=== PATIENT | female | born 1955 | race Caucasian/White ===

== ENCOUNTER 2016-04-08 17:50 | Inpatient (IN) | payer BC, MEDICAID, MEDICARE ==
[~2016-04-08] VITALS: Ht 170.2 cm; Wt 58.2 kg
[2016-04-08] MEDS ORDERED: MORPHINE SULFATE INJ 4 MG/ML DISP.SYRIN ONE (18:13)
[2016-04-08] MEDS ORDERED: MORPHINE SULFATE INJ 4 MG/ML DISP.SYRIN IM ONE (18:30)
[2016-04-08] MEDS ORDERED: MORPHINE SULFATE INJ 2 MG/ML DISP.SYRIN IV ONE (19:30)
[2016-04-08 19:32] LABS: BASOPHILS % (AUTO) 0.5 % (0.0-2.0); EOSINOPHILS % (AUTO) 0.1 % (0.0-6.0); HEMATOCRIT 35 % (33-45); LYMPHOCYTES % (AUTO) 18.2 % (20.0-44.0); MEAN CORPUSCULAR HEMOGLOBIN 30 PG (26.0-33.0); MEAN CORPUSCULAR HGB CONC 34 g/dl (31.0-36.0); MEAN CORPUSCULAR VOLUME 87 fL (82-100); MONOCYTES % (AUTO) 5.7 % (2.0-12.0); NEUTROPHILS % (AUTO) 75.5 % (43.0-81.0); PLATELET COUNT (AUTO) 162 /CMM (150-450); WHITE BLOOD COUNT (AUTO) 9.1 K/uL (4.3-11.0)
[2016-04-08 19:33] LABS: DIFF TOTAL % 100 %; LYMPHOCYTES # (AUTO) 1.6 /CMM (0.8-4.8); MONOCYTES # (AUTO) 0.5 /CMM (0.1-1.30)
[2016-04-08 19:45] LABS: INR 1.1 (0.87-1.13); PROTHROMBIN TIME 11.6 SECS (9.5-12.7)
[2016-04-08] MEDS ORDERED: IV NS 0.9% 1,000 ML IV PRN (19:48)
[2016-04-08] MEDS ORDERED: MAG HYDROX/AL HYDROX/SIMETH 30 ML UDC PO PRN (20:00)
[2016-04-08] MEDS ORDERED: ONDANSETRON HCL/PF 4 MG/2 ML VIAL IVP PRN (20:00)
[2016-04-08 20:01] LABS: CALCIUM, SERUM 9.3 mg/dL (8.5-10.1); CREATININE 0.7 mg/dL (0.6-1.3); POTASSIUM 3.7 mmol/L (3.5-5.1)
[2016-04-08] MEDS ORDERED: FLUV100T3 PO (20:15)
[2016-04-08] MEDS ORDERED: PREG75CA PO (20:15)
[2016-04-08] MEDS ORDERED: CLOZ100T32 PO (20:15)
[2016-04-08] MEDS ORDERED: PROP20TA7 PO (20:15)
[2016-04-08] MEDS ORDERED: SIMV40TA5 PO (20:15)
[2016-04-08] MEDS ORDERED: CLON1TAB4 PO (20:15)
[2016-04-08] MEDS ORDERED: SERT100T PO (20:15)
[2016-04-08 20:45] VITALS: BP 118/66
[2016-04-08] MEDS ORDERED: IV SET PRIMARY PUMP SET 1 EA INFUS.SET MC ONE (21:30)
[2016-04-08] MEDS ORDERED: IV D5/ 0.9% NACL 1,000 ML IV ONE (21:30)
[2016-04-08] MEDS: IV D5/ 0.9% NACL 1,000 ML IV SCH (21:38)
[2016-04-09] MEDS ORDERED: CLOZ100T32 PO (07:20)
[2016-04-09] MEDS ORDERED: SERT50TA12 PO (07:20)
[2016-04-09] MEDS ORDERED: CLOZ200T PO (07:20)
[2016-04-09 08:00] VITALS: BP 97/50
[2016-04-09] MEDS: PANTOPRAZOLE 40 MG VIAL IV SCH (08:14)
[2016-04-09] MEDS: HYDROCODONE/APAP 5/325MG 1 EACH TABLET PO PRN (08:19)
[2016-04-09 08:23] LABS: BASOPHILS % (AUTO) 0.3 % (0.0-2.0); DIFF TOTAL % 100 %; EOSINOPHILS % (AUTO) 0.1 % (0.0-6.0); HEMATOCRIT 35 % (33-45); HEMOGLOBIN 11.8 g/dL (11.5-14.8); LYMPHOCYTES # (AUTO) 1.2 /CMM (0.8-4.8); LYMPHOCYTES % (AUTO) 17.2 % (20.0-44.0); MEAN CORPUSCULAR HEMOGLOBIN 29 PG (26.0-33.0); MEAN CORPUSCULAR HGB CONC 34 g/dl (31.0-36.0); MEAN CORPUSCULAR VOLUME 87 fL (82-100); MONOCYTES # (AUTO) 0.5 /CMM (0.1-1.30); MONOCYTES % (AUTO) 6.5 % (2.0-12.0); NEUTROPHILS # (AUTO) 5.3 /CMM (1.8-8.9); NEUTROPHILS % (AUTO) 75.9 % (43.0-81.0); PLATELET COUNT (AUTO) 153 /CMM (150-450); RED BLOOD CELL COUNT(AUTO) 4.02 MIL/uL (4.0-5.2)
[2016-04-09 08:29] LABS: CALCIUM, SERUM 8.6 mg/dL (8.5-10.1); CREATININE 0.8 mg/dL (0.6-1.3); PHOSPHORUS 2.8 mg/dL (2.5-4.9); POTASSIUM 3.5 mmol/L (3.5-5.1)
[2016-04-09] MEDS ORDERED: ENOXAPARIN SODIUM 30 MG/0.3 ML DISP.SYRIN SQ SCH (09:00)
[2016-04-09] MEDS ORDERED: ENOXAPARIN SODIUM 40 MG/0.4 ML DISP.SYRIN SQ SCH (09:00)
[2016-04-09] MEDS ORDERED: SECONDARY IV SET 1 EA INFUS.SET MC ONE (10:42)
[2016-04-09] MEDS: IV D5/ 0.9% NACL 1,000 ML IV SCH (10:49)
[2016-04-09] MEDS ORDERED: CEFTRIAXONE 1 G in IV D5W 50 ML IV SCH (11:00)
[2016-04-09 16:00] VITALS: BP 117/71
[2016-04-09] MEDS ORDERED: SERTRALINE HCL 50 MG TABLET PO SCH ×2 (17:00)
[2016-04-09] MEDS: PREGABALIN 25 MG CAPSULE PO SCH (17:11)
[2016-04-09] MEDS: FLUVOXAMINE MALEATE 50 MG TABLET PO SCH (17:12)
[2016-04-09] MEDS: clonazePAM 1 MG TABLET PO SCH (17:12)
[2016-04-09] MEDS: SIMVASTATIN 40 MG TABLET PO SCH (17:12)
[2016-04-09] MEDS: SERTRALINE HCL 50 MG TABLET PO SCH (17:12)
[2016-04-09 20:00] VITALS: BP 100/44
[2016-04-09] MEDS: CLOZAPINE 100 MG TABLET PO SCH (23:25)
[2016-04-10] VITALS (13 sets, daily range): BP systolic 81–120; BP diastolic 43–81
[2016-04-10] MEDS ORDERED: IV D5/ 0.9% NACL 1,000 ML IV ONE (05:29)
[2016-04-10] MEDS: IV D5/ 0.9% NACL 1,000 ML IV PRN ×2 (05:33→17:33)
[2016-04-10] MEDS ORDERED: BACITRACIN 50000 UNITS/VIAL ONE (07:17)
[2016-04-10] MEDS ORDERED: MIDAZOLAM HCL 2 MG/2ML VIAL ONE (08:34)
[2016-04-10] MEDS ORDERED: ROCURONIUM BROMIDE 50 MG/5 ML ONE (08:34)
[2016-04-10] MEDS ORDERED: FENTANYL PF 100MCG/2ML AMPUL ONE (08:34)
[2016-04-10] MEDS: PROPRANOLOL HCL 10 MG TABLET PO SCH (09:00)
[2016-04-10] MEDS ORDERED: TRANEXAMIC ACID 3,000 MG in SODIUM CHLORIDE IRRIG SOLUTION 70 ML IR ONE (09:30)
[2016-04-10] MEDS ORDERED: BUPIVACAINE 0.5 % PF 150 MG/30 ML VIAL ONE (10:52)
[2016-04-10] MEDS: clonazePAM 1 MG TABLET PO SCH ×3 (13:00→17:34)
[2016-04-10] MEDS: FLUVOXAMINE MALEATE 50 MG TABLET PO SCH ×2 (17:00→17:34)
[2016-04-10] MEDS: SERTRALINE HCL 50 MG TABLET PO SCH ×2 (17:00→17:34)
[2016-04-10] MEDS: PREGABALIN 25 MG CAPSULE PO SCH ×2 (17:00→17:34)
[2016-04-10] MEDS: PANTOPRAZOLE 40 MG VIAL IV SCH (17:33)
[2016-04-10] MEDS: SIMVASTATIN 40 MG TABLET PO SCH (17:34)
[2016-04-10] MEDS: CLOZAPINE 100 MG TABLET PO SCH ×2 (17:34→21:10)
[2016-04-10] MEDS: ANCEF 1 GM/50 ML D5W IV SCH ×2 (19:23)
[2016-04-10] MEDS: TEMAZEPAM 15 MG CAPSULE PO PRN (21:50)
[2016-04-11] MEDS: ACETAMINOPHEN 325 MG TABLET PO PRN ×2 (00:02→21:28)
[2016-04-11] MEDS: ANCEF 1 GM/50 ML D5W IV SCH ×4 (00:02→10:34)
[2016-04-11 01:45] VITALS: BP 107/54
[2016-04-11 06:50] LABS: BASOPHILS % (AUTO) 0.4 % (0.0-2.0); DIFF TOTAL % 100 %; HEMATOCRIT 29 % (33-45); HEMOGLOBIN 9.5 g/dL (11.5-14.8); LYMPHOCYTES # (AUTO) 1.1 /CMM (0.8-4.8); LYMPHOCYTES % (AUTO) 14.5 % (20.0-44.0); MEAN CORPUSCULAR HEMOGLOBIN 29 PG (26.0-33.0); MEAN CORPUSCULAR HGB CONC 33 g/dl (31.0-36.0); MEAN CORPUSCULAR VOLUME 88 fL (82-100); MONOCYTES # (AUTO) 0.4 /CMM (0.1-1.30); MONOCYTES % (AUTO) 5.5 % (2.0-12.0); NEUTROPHILS # (AUTO) 6.2 /CMM (1.8-8.9); NEUTROPHILS % (AUTO) 79.6 % (43.0-81.0); PLATELET COUNT (AUTO) 128 /CMM (150-450); RED BLOOD CELL COUNT(AUTO) 3.26 MIL/uL (4.0-5.2); WHITE BLOOD COUNT (AUTO) 7.8 K/uL (4.3-11.0)
[2016-04-11 07:09] LABS: CALCIUM, SERUM 8.3 mg/dL (8.5-10.1); CREATININE 0.6 mg/dL (0.6-1.3); POTASSIUM 3.4 mmol/L (3.5-5.1)
[2016-04-11 08:00] VITALS: BP 107/58
[2016-04-11] MEDS: PANTOPRAZOLE 40 MG VIAL IV SCH (09:09)
[2016-04-11] MEDS: PREGABALIN 25 MG CAPSULE PO SCH ×2 (09:09→16:53)
[2016-04-11] MEDS: CLOZAPINE 100 MG TABLET PO SCH ×2 (09:10→22:14)
[2016-04-11] MEDS: SERTRALINE HCL 50 MG TABLET PO SCH ×2 (09:10→16:53)
[2016-04-11] MEDS: clonazePAM 1 MG TABLET PO SCH ×3 (09:10→16:53)
[2016-04-11] MEDS: FLUVOXAMINE MALEATE 50 MG TABLET PO SCH ×2 (09:10→16:53)
[2016-04-11] MEDS: SIMVASTATIN 40 MG TABLET PO SCH (09:10)
[2016-04-11] MEDS: ENOXAPARIN SODIUM 40 MG/0.4 ML DISP.SYRIN SQ SCH (09:24)
[2016-04-11] MEDS: ACETYLCYSTEINE 20% SOLN 800 MG/4 ML VIAL NEB SCH ×2 (10:30→15:17)
[2016-04-11] MEDS ORDERED: POTASSIUM CHLORIDE 20 MEQ TAB.PRT.SR PO ONE (10:30)
[2016-04-11] MEDS: PROPRANOLOL HCL 10 MG TABLET PO SCH (10:51)
[2016-04-11] MEDS: AZITHROMYCIN 250 MG TABLET PO SCH (11:06)
[2016-04-11] MEDS: IV D5/ 0.9% NACL 1,000 ML IV PRN (12:24)
[2016-04-11] MEDS: IPRATROPIUM NEB FS 0.5 MG/2.5 ML AMPUL.NEB NEB PRN ×2 (15:17→21:10)
[2016-04-11 16:00] VITALS: BP 82/54
[2016-04-11 20:00] VITALS: BP 107/57
[2016-04-11 22:00] VITALS: BP 107/57
[2016-04-11 23:54] LABS: KETONES,URINE 2+ (NEGATIVE); LEUKOCYTE ESTERASE ,URINE NEGATIVE (NEGATIVE)
[2016-04-11 23:58] LABS: ADD UA MICROSCOPIC YES
[2016-04-12] VITALS (22 sets, daily range): BP systolic 87–116; BP diastolic 47–66
[2016-04-12] MEDS: ACETYLCYSTEINE 20% SOLN 800 MG/4 ML VIAL NEB SCH ×2 (00:06→07:53)
[2016-04-12 00:30] LABS: ADD URINE CULTURE NO; RBC,URINE 21-50 /HPF (0-2); WBC,URINE 0-2 /HPF (0-3)
[2016-04-12] MEDS: TEMAZEPAM 15 MG CAPSULE PO PRN (00:46)
[2016-04-12] MEDS ORDERED: LORAZEPAM INJ 2 MG/ML VIAL ONE (01:11)
[2016-04-12] MEDS ORDERED: IV NS 0.9% 500 ML IV ONE ×2 (01:20→01:30)
[2016-04-12] MEDS ORDERED: IV NS 0.9% 1,000 ML ONE ×2 (01:22→16:23)
[2016-04-12] MEDS ORDERED: IV SET PRIMARY PUMP SET 1 EA INFUS.SET MC ONE ×5 (01:22→20:04)
[2016-04-12] MEDS ORDERED: LORAZEPAM INJ 2 MG/ML VIAL IV ONE (01:30)
[2016-04-12] MEDS: IPRATROPIUM NEB FS 0.5 MG/2.5 ML AMPUL.NEB NEB PRN (03:13)
[2016-04-12] MEDS: IV NS 0.9% 1,000 ML IV PRN ×2 (03:59→13:56)
[2016-04-12 04:45] LABS: ABG BASE EXCESS -1.4 mmol/L; ABG HCO3 23.7 mmol/L; ABG PCO2 41.4 mmHg (35.0-45.0); ABG PH 7.375 (7.350-7.450); ABG PO2 52.3 mmHg (75.0-100.0); ABG TOTAL HEMOGLOBIN 9.7 G/dL (12.0-16.0); ALLEN TEST Pass; O2Hb 85.3 % (94.0-97.0)
[2016-04-12] MEDS ORDERED: LORAZEPAM INJ 2 MG/ML VIAL IV PRN (05:30)
[2016-04-12] MEDS: PREGABALIN 25 MG CAPSULE PO SCH ×2 (09:15→21:30)
[2016-04-12] MEDS: PANTOPRAZOLE 40 MG VIAL IV SCH (09:15)
[2016-04-12] MEDS: SERTRALINE HCL 50 MG TABLET PO SCH ×2 (09:16→21:37)
[2016-04-12] MEDS: AZITHROMYCIN 250 MG TABLET PO SCH (09:16)
[2016-04-12] MEDS: clonazePAM 1 MG TABLET PO SCH ×2 (09:16→13:00)
[2016-04-12] MEDS: SIMVASTATIN 40 MG TABLET PO SCH (09:16)
[2016-04-12] MEDS: CLOZAPINE 100 MG TABLET PO SCH ×2 (09:17→23:02)
[2016-04-12] MEDS: FLUVOXAMINE MALEATE 50 MG TABLET PO SCH ×2 (09:17→23:29)
[2016-04-12] MEDS: PROPRANOLOL HCL 10 MG TABLET PO SCH (09:17)
[2016-04-12] MEDS: ENOXAPARIN SODIUM 40 MG/0.4 ML DISP.SYRIN SQ SCH (09:23)
[2016-04-12 15:11] LABS: ABG BASE EXCESS -2.3 mmol/L; ABG HCO3 23.8 mmol/L; ABG NOTIFIED WHOM RN; ABG PCO2 46.7 mmHg (35.0-45.0); ABG PH 7.325 (7.350-7.450); ABG PO2 64.4 mmHg (75.0-100.0); ABG TOTAL HEMOGLOBIN 9.4 G/dL (12.0-16.0); ALLEN TEST Pass; AaDO2 601.9 mmHg; O2Hb 89.1 % (94.0-97.0)
[2016-04-12] MEDS ORDERED: PIPERACILLIN /TAZOBACTAM 3.375 G in IV D5W 50 ML IV SCH (16:00)
[2016-04-12] MEDS ORDERED: FEE PK DOSING 1 MIN EA MC ONE (16:17)
[2016-04-12] MEDS ORDERED: NOREPINEPHRINE 8 MG in IV D5W 500 ML IV PRN (16:30)
[2016-04-12] MEDS ORDERED: VANCOMYCIN 1 GM in IV D5W 250 ML IV ONE (17:00)
[2016-04-12] MEDS ORDERED: PROPOFOL 100 ML IV PRN (17:00)
[2016-04-12] MEDS: IPRATROPIUM NEB FS 0.5 MG/2.5 ML AMPUL.NEB NEB SCH ×3 (17:14→23:43)
[2016-04-12] MEDS: ALBUTEROL HALF STRENGTH 1.25 MG/3 ML VIAL.NEB NEB SCH ×3 (17:15→23:43)
[2016-04-12] MEDS: ACETYLCYSTEINE 10% SOLN 400 MG/4 ML VIAL NEB SCH ×2 (17:15→23:43)
[2016-04-12] MEDS: PROPOFOL 100 ML IV PRN (17:18)
[2016-04-12 17:30] LABS: ABG BASE EXCESS -6.5 mmol/L; ABG HCO3 21.5 mmol/L; ABG PCO2 54.7 mmHg (35.0-45.0); ABG PH 7.212 (7.350-7.450); ABG PO2 239.8 mmHg (75.0-100.0); ABG TOTAL HEMOGLOBIN 10.8 G/dL (12.0-16.0); AaDO2 418.5 mmHg; O2Hb 97.3 % (94.0-97.0)
[2016-04-12] MEDS ORDERED: IV D5/ 0.9% NACL 1,000 ML IV ONE (17:44)
[2016-04-12] MEDS ORDERED: SECONDARY IV SET 1 EA INFUS.SET MC ONE (17:58)
[2016-04-12] MEDS: PIPERACILLIN /TAZOBACTAM 3.375 G in IV D5W 50 ML IV SCH (18:14)
[2016-04-12] MEDS: IV D5/ 0.9% NACL 1,000 ML IV PRN (18:15)
[2016-04-12] MEDS ORDERED: IV D5W 250 ML IV ONE (20:04)
[2016-04-12] MEDS: NOREPINEPHRINE 16 MG in IV D5W 500 ML IV PRN (20:13)
[2016-04-12] MEDS ORDERED: IOHEXOL-350 100 ML VIAL IV ONE (21:40)
[2016-04-12] MEDS ORDERED: IV NS 0.9% 250 ML IV ONE (21:40)
[2016-04-12] MEDS ORDERED: FLUVOXAMINE MALEATE 50 MG TABLET ONE (23:16)
[2016-04-13] VITALS (63 sets, daily range): BP systolic 78–133; BP diastolic 42–85
[2016-04-13] MEDS: PIPERACILLIN /TAZOBACTAM 3.375 G in IV D5W 50 ML IV SCH ×5 (00:30→23:28)
[2016-04-13] MEDS: PROPOFOL 100 ML IV PRN ×5 (02:04→22:53)
[2016-04-13] MEDS: IV D5/ 0.9% NACL 1,000 ML IV PRN ×4 (03:27→21:45)
[2016-04-13] MEDS ORDERED: IV SET PRIMARY PUMP SET 1 EA INFUS.SET MC ONE ×5 (03:27→22:06)
[2016-04-13] MEDS ORDERED: IV D5W 250 ML IV ONE ×2 (03:27→21:16)
[2016-04-13] MEDS: ALBUTEROL HALF STRENGTH 1.25 MG/3 ML VIAL.NEB NEB SCH ×6 (03:53→23:21)
[2016-04-13] MEDS: IPRATROPIUM NEB FS 0.5 MG/2.5 ML AMPUL.NEB NEB SCH ×6 (03:53→23:20)
[2016-04-13] MEDS: VANCOMYCIN 1 GM in IV D5W 250 ML IV SCH ×2 (04:57→18:38)
[2016-04-13 05:26] LABS: CALCIUM, SERUM 8.1 mg/dL (8.5-10.1); CREATININE 0.6 mg/dL (0.6-1.3)
[2016-04-13 05:33] LABS: POTASSIUM 2.8 mmol/L (3.5-5.1)
[2016-04-13] MEDS ORDERED: POTASSIUM CL. PREMIX PERIPHER. 50 ML ONE (06:15)
[2016-04-13] MEDS ORDERED: Magnesium 1GM/D5W 100ML PREMIX 100 ML IV ONE (06:15)
[2016-04-13] MEDS ORDERED: Magnesium 1GM/D5W 100ML PREMIX PIGGYBACK IV ONE (06:30)
[2016-04-13] MEDS ORDERED: Magnesium 1GM/D5W 100ML PREMIX 100 ML IV SCH (06:30)
[2016-04-13] MEDS: ACETYLCYSTEINE 10% SOLN 400 MG/4 ML VIAL NEB SCH ×3 (07:40→23:20)
[2016-04-13 08:25] LABS: ABG PCO2 43.9 mmHg (35.0-45.0); ABG PH 7.406 (7.350-7.450); ABG TOTAL HEMOGLOBIN 7.8 G/dL (12.0-16.0); ALLEN TEST Pass; AaDO2 309.9 mmHg
[2016-04-13] MEDS: POTASSIUM CL. PREMIX PERIPHER. 50 ML IV SCH ×6 (08:30→13:30)
[2016-04-13] MEDS: ACETAMINOPHEN 325 MG TABLET PO PRN (08:45)
[2016-04-13 09:59] LABS: PHOSPHORUS 1.3 mg/dL (2.5-4.9)
[2016-04-13] MEDS: PANTOPRAZOLE 40 MG VIAL IV SCH (10:05)
[2016-04-13] MEDS ORDERED: FEE EMEERGENCY 1 MIN EA MC ONE (10:31)
[2016-04-13] MEDS ORDERED: ETOMIDATE 2 MG/ML VIAL IV ONE (10:31)
[2016-04-13] MEDS ORDERED: SUCCINYLCHOLINE CHLORIDE 20 MG/ML VIAL IV ONE (10:31)
[2016-04-13] MEDS: FLUVOXAMINE MALEATE 50 MG TABLET PO SCH ×2 (11:40→18:49)
[2016-04-13] MEDS: SIMVASTATIN 40 MG TABLET PO SCH (11:40)
[2016-04-13] MEDS: AZITHROMYCIN 250 MG TABLET PO SCH (11:40)
[2016-04-13] MEDS: CLOZAPINE 100 MG TABLET PO SCH ×2 (11:41→21:50)
[2016-04-13] MEDS: SERTRALINE HCL 50 MG TABLET PO SCH ×2 (11:41→18:49)
[2016-04-13] MEDS: ENOXAPARIN SODIUM 40 MG/0.4 ML DISP.SYRIN SQ SCH (11:42)
[2016-04-13] MEDS: PREGABALIN 25 MG CAPSULE PO SCH ×2 (11:45→18:49)
[2016-04-13] MEDS: PROPRANOLOL HCL 10 MG TABLET PO SCH (11:45)
[2016-04-13] MEDS ORDERED: SECONDARY IV SET 1 EA INFUS.SET MC ONE (14:34)
[2016-04-13] MEDS: Potassium Phosphate meq 11 MEQ in IV D5W 100 ML IV SCH ×2 (14:38→15:59)
[2016-04-13] MEDS ORDERED: PHENYLEPHRINE 10 MG/ML VIAL ONE (21:16)
[2016-04-13] MEDS ORDERED: LORAZEPAM 0.5 MG TABLET ONE (23:23)
[2016-04-13] MEDS: LORAZEPAM 0.5 MG TABLET PO SCH (23:28)
[2016-04-14] VITALS (87 sets, daily range): BP systolic 87–127; BP diastolic 24–76
[2016-04-14] MEDS: PROPOFOL 100 ML IV PRN ×4 (03:13→22:46)
[2016-04-14] MEDS: IPRATROPIUM NEB FS 0.5 MG/2.5 ML AMPUL.NEB NEB SCH ×6 (03:23→23:40)
[2016-04-14] MEDS: ALBUTEROL HALF STRENGTH 1.25 MG/3 ML VIAL.NEB NEB SCH ×6 (03:23→23:40)
[2016-04-14] MEDS: VANCOMYCIN 1 GM in IV D5W 250 ML IV SCH ×3 (04:32→21:12)
[2016-04-14 05:23] LABS: CALCIUM, SERUM 7.8 mg/dL (8.5-10.1); CREATININE 0.4 mg/dL (0.6-1.3)
[2016-04-14 05:32] LABS: POTASSIUM 2.8 mmol/L (3.5-5.1)
[2016-04-14] MEDS ORDERED: NOREPINEPHRINE 4 MG/4 ML AMPUL IV ONE (05:34)
[2016-04-14] MEDS: NOREPINEPHRINE 16 MG in IV D5W 500 ML IV PRN ×2 (05:43→12:21)
[2016-04-14] MEDS: PIPERACILLIN /TAZOBACTAM 3.375 G in IV D5W 50 ML IV SCH ×4 (06:02→23:13)
[2016-04-14] MEDS ORDERED: LORAZEPAM 0.5 MG TABLET ONE (06:05)
[2016-04-14] MEDS ORDERED: POTASSIUM CL. PREMIX PERIPHER. 50 ML ONE (06:17)
[2016-04-14] MEDS: POTASSIUM CL. PREMIX PERIPHER. 50 ML IV SCH ×4 (06:26→10:57)
[2016-04-14] MEDS: LORAZEPAM 0.5 MG TABLET PO SCH ×4 (06:26→23:14)
[2016-04-14] MEDS: ACETYLCYSTEINE 10% SOLN 400 MG/4 ML VIAL NEB SCH ×3 (07:17→23:40)
[2016-04-14] MEDS: CLOZAPINE 100 MG TABLET PO SCH ×2 (08:10→21:57)
[2016-04-14] MEDS: SIMVASTATIN 40 MG TABLET PO SCH (08:10)
[2016-04-14] MEDS: PREGABALIN 25 MG CAPSULE PO SCH ×2 (08:10→16:17)
[2016-04-14] MEDS: PROPRANOLOL HCL 10 MG TABLET PO SCH (08:10)
[2016-04-14] MEDS: SERTRALINE HCL 50 MG TABLET PO SCH ×2 (08:10→16:17)
[2016-04-14] MEDS: PANTOPRAZOLE 40 MG VIAL IV SCH (08:10)
[2016-04-14] MEDS: FLUVOXAMINE MALEATE 50 MG TABLET PO SCH ×2 (08:10→16:17)
[2016-04-14] MEDS: ENOXAPARIN SODIUM 40 MG/0.4 ML DISP.SYRIN SQ SCH (08:12)
[2016-04-14] MEDS: ACETAMINOPHEN 325 MG TABLET PO PRN ×2 (08:18→14:56)
[2016-04-14 09:03] LABS: BASOPHILS % (AUTO) 0.3 % (0.0-2.0); DIFF TOTAL % 100 %; HEMATOCRIT 24 % (33-45); HEMOGLOBIN 7.8 g/dL (11.5-14.8); LYMPHOCYTES # (AUTO) 0.9 /CMM (0.8-4.8); LYMPHOCYTES % (AUTO) 14.4 % (20.0-44.0); MEAN CORPUSCULAR HEMOGLOBIN 29 PG (26.0-33.0); MEAN CORPUSCULAR HGB CONC 33 g/dl (31.0-36.0); MEAN CORPUSCULAR VOLUME 88 fL (82-100); MONOCYTES # (AUTO) 0.3 /CMM (0.1-1.30); MONOCYTES % (AUTO) 4.8 % (2.0-12.0); NEUTROPHILS # (AUTO) 5.1 /CMM (1.8-8.9); NEUTROPHILS % (AUTO) 80.5 % (43.0-81.0); PLATELET COUNT (AUTO) 161 /CMM (150-450); WHITE BLOOD COUNT (AUTO) 6.4 K/uL (4.3-11.0)
[2016-04-14] MEDS: AZITHROMYCIN 250 MG TABLET PO SCH (10:07)
[2016-04-14 10:21] LABS: ABG BASE EXCESS 2.4 mmol/L; ABG HCO3 26.5 mmol/L; ABG PCO2 38.4 mmHg (35.0-45.0); ABG PH 7.456 (7.350-7.450); ABG PO2 110.2 mmHg (75.0-100.0); ABG TOTAL HEMOGLOBIN 8.1 G/dL (12.0-16.0); AaDO2 203.1 mmHg; O2Hb 94.6 % (94.0-97.0)
[2016-04-14] MEDS: IV D5/ 0.9% NACL 1,000 ML IV PRN (10:21)
[2016-04-14] MEDS ORDERED: BLOOD IV SET 1 EA INFUS.SET MC ONE (12:11)
[2016-04-14] MEDS ORDERED: IV NS 0.9% 250 ML IV ONE (12:12)
[2016-04-14] MEDS ORDERED: SECONDARY IV SET 1 EA INFUS.SET MC ONE (13:01)
[2016-04-14] MEDS ORDERED: K PHOS NEUTRAL 250 MG TABLET PO ONE (14:00)
[2016-04-14] MEDS: FIBERSOURCE HN 1,000 ML BOTTLE GT PRN (18:14)
[2016-04-14] MEDS ORDERED: IV D5W 250 ML IV ONE (21:05)
[2016-04-14] MEDS ORDERED: IV SET PRIMARY PUMP SET 1 EA INFUS.SET MC ONE (21:05)
[2016-04-15] VITALS (69 sets, daily range): BP systolic 95–133; BP diastolic 50–78
[2016-04-15] MEDS: ACETAMINOPHEN 325 MG TABLET PO PRN (02:40)
[2016-04-15] MEDS: IPRATROPIUM NEB FS 0.5 MG/2.5 ML AMPUL.NEB NEB SCH ×6 (03:14→23:46)
[2016-04-15] MEDS: ALBUTEROL HALF STRENGTH 1.25 MG/3 ML VIAL.NEB NEB SCH ×6 (03:14→23:45)
[2016-04-15] MEDS: IV D5/ 0.9% NACL 1,000 ML IV PRN ×2 (03:17→16:24)
[2016-04-15] MEDS: VANCOMYCIN 1 GM in IV D5W 250 ML IV SCH ×3 (04:30→20:26)
[2016-04-15] MEDS: PROPOFOL 100 ML IV PRN (04:31)
[2016-04-15 04:54] LABS: CREATININE 0.6 mg/dL (0.6-1.3); PHOSPHORUS 2.1 mg/dL (2.5-4.9)
[2016-04-15 05:03] LABS: POTASSIUM 2.5 mmol/L (3.5-5.1)
[2016-04-15] MEDS: PIPERACILLIN /TAZOBACTAM 3.375 G in IV D5W 50 ML IV SCH ×4 (05:54→23:32)
[2016-04-15] MEDS ORDERED: POTASSIUM CL. PREMIX PERIPHER. 50 ML ONE (05:55)
[2016-04-15] MEDS ORDERED: Magnesium 1GM/D5W 100ML PREMIX 100 ML IV ONE (05:55)
[2016-04-15] MEDS ORDERED: IV SET PRIMARY PUMP SET 1 EA INFUS.SET MC ONE (05:55)
[2016-04-15] MEDS: LORAZEPAM 0.5 MG TABLET PO SCH ×4 (05:57→23:33)
[2016-04-15] MEDS: Magnesium 1GM/D5W 100ML PREMIX 100 ML IV SCH ×2 (06:05→08:16)
[2016-04-15] MEDS: POTASSIUM CL. PREMIX PERIPHER. 50 ML IV SCH ×6 (06:08→12:40)
[2016-04-15] MEDS ORDERED: POTASSIUM PHOSPHATE MM 15 MMOL in IV D5W 250 ML IV SCH (07:00)
[2016-04-15 07:53] LABS: BASOPHILS % (AUTO) 0.6 % (0.0-2.0); DIFF TOTAL % 100 %; HEMATOCRIT 30 % (33-45); HEMOGLOBIN 10.3 g/dL (11.5-14.8); LYMPHOCYTES # (AUTO) 0.8 /CMM (0.8-4.8); LYMPHOCYTES % (AUTO) 13.4 % (20.0-44.0); MEAN CORPUSCULAR HEMOGLOBIN 29 PG (26.0-33.0); MEAN CORPUSCULAR HGB CONC 34 g/dl (31.0-36.0); MEAN CORPUSCULAR VOLUME 87 fL (82-100); MONOCYTES # (AUTO) 0.3 /CMM (0.1-1.30); MONOCYTES % (AUTO) 5.4 % (2.0-12.0); NEUTROPHILS # (AUTO) 4.6 /CMM (1.8-8.9); NEUTROPHILS % (AUTO) 80.6 % (43.0-81.0); PLATELET COUNT (AUTO) 188 /CMM (150-450); RED BLOOD CELL COUNT(AUTO) 3.48 MIL/uL (4.0-5.2); WHITE BLOOD COUNT (AUTO) 5.7 K/uL (4.3-11.0)
[2016-04-15] MEDS: ACETYLCYSTEINE 10% SOLN 400 MG/4 ML VIAL NEB SCH ×3 (07:54→23:45)
[2016-04-15] MEDS: PANTOPRAZOLE 40 MG VIAL IV SCH (08:16)
[2016-04-15] MEDS: CLOZAPINE 100 MG TABLET PO SCH ×2 (08:16→21:27)
[2016-04-15] MEDS: FLUVOXAMINE MALEATE 50 MG TABLET PO SCH ×2 (08:17→16:23)
[2016-04-15] MEDS: PROPRANOLOL HCL 10 MG TABLET PO SCH (08:17)
[2016-04-15] MEDS: SERTRALINE HCL 50 MG TABLET PO SCH ×2 (08:17→16:23)
[2016-04-15] MEDS: PREGABALIN 25 MG CAPSULE PO SCH ×2 (08:17→16:22)
[2016-04-15] MEDS: SIMVASTATIN 40 MG TABLET PO SCH (08:17)
[2016-04-15] MEDS: ENOXAPARIN SODIUM 40 MG/0.4 ML DISP.SYRIN SQ SCH (08:18)
[2016-04-15 11:24] LABS: ABG BASE EXCESS 1.5 mmol/L; ABG HCO3 27.9 mmol/L; ABG PCO2 52.4 mmHg (35.0-45.0); ABG PH 7.344 (7.350-7.450); ABG PO2 90.7 mmHg (75.0-100.0); ABG TOTAL HEMOGLOBIN 11.2 G/dL (12.0-16.0); ALLEN TEST Pass; AaDO2 134.2 mmHg; O2Hb 94.1 % (94.0-97.0)
[2016-04-15] MEDS: MORPHINE SULFATE INJ 2 MG/ML DISP.SYRIN IV PRN (11:28)
[2016-04-15] MEDS: LORAZEPAM INJ 2 MG/ML VIAL IV PRN (11:28)
[2016-04-15] MEDS: AZITHROMYCIN 250 MG TABLET PO SCH (11:31)
[2016-04-15] MEDS: POTASSIUM PHOSPHATE MM 7.5 MMOL in IV D5W 100 ML IV SCH ×4 (14:20→21:21)
[2016-04-15] MEDS: FIBERSOURCE HN 1,000 ML BOTTLE GT PRN (20:32)
[2016-04-16] VITALS (57 sets, daily range): BP systolic 101–149; BP diastolic 47–89
[2016-04-16] MEDS ORDERED: LEVOFLOXACIN 750 MG /D5W 150ML 150 ML IV ONE ×2 (01:44→05:00)
[2016-04-16] MEDS: ALBUTEROL HALF STRENGTH 1.25 MG/3 ML VIAL.NEB NEB SCH ×6 (03:46→23:20)
[2016-04-16] MEDS: IPRATROPIUM NEB FS 0.5 MG/2.5 ML AMPUL.NEB NEB SCH ×6 (03:47→23:20)
[2016-04-16] MEDS: IV D5/ 0.9% NACL 1,000 ML IV PRN ×2 (04:50→14:40)
[2016-04-16] MEDS: VANCOMYCIN 1 GM in IV D5W 250 ML IV SCH ×3 (05:13→20:20)
[2016-04-16 05:17] LABS: BASOPHILS % (AUTO) 0.1 % (0.0-2.0); DIFF TOTAL % 100 %; EOSINOPHILS % (AUTO) 0.1 % (0.0-6.0); HEMATOCRIT 33 % (33-45); HEMOGLOBIN 10.8 g/dL (11.5-14.8); LYMPHOCYTES % (AUTO) 15.7 % (20.0-44.0); MEAN CORPUSCULAR HEMOGLOBIN 29 PG (26.0-33.0); MEAN CORPUSCULAR HGB CONC 33 g/dl (31.0-36.0); MEAN CORPUSCULAR VOLUME 87 fL (82-100); MONOCYTES # (AUTO) 0.4 /CMM (0.1-1.30); MONOCYTES % (AUTO) 6.6 % (2.0-12.0); NEUTROPHILS # (AUTO) 5.1 /CMM (1.8-8.9); NEUTROPHILS % (AUTO) 77.5 % (43.0-81.0); PLATELET COUNT (AUTO) 216 /CMM (150-450); RED BLOOD CELL COUNT(AUTO) 3.78 MIL/uL (4.0-5.2); WHITE BLOOD COUNT (AUTO) 6.6 K/uL (4.3-11.0)
[2016-04-16 05:39] LABS: CALCIUM, SERUM 7.9 mg/dL (8.5-10.1); CREATININE 0.6 mg/dL (0.6-1.3); PHOSPHORUS 2.2 mg/dL (2.5-4.9); POTASSIUM 3.3 mmol/L (3.5-5.1)
[2016-04-16] MEDS: PIPERACILLIN /TAZOBACTAM 3.375 G in IV D5W 50 ML IV SCH ×4 (05:44→23:13)
[2016-04-16] MEDS: LORAZEPAM 0.5 MG TABLET PO SCH ×4 (06:01→23:12)
[2016-04-16] MEDS: ACETYLCYSTEINE 10% SOLN 400 MG/4 ML VIAL NEB SCH ×3 (07:42→23:20)
[2016-04-16] MEDS: PANTOPRAZOLE 40 MG VIAL IV SCH (08:01)
[2016-04-16] MEDS: SIMVASTATIN 40 MG TABLET PO SCH (08:02)
[2016-04-16] MEDS: SERTRALINE HCL 50 MG TABLET PO SCH ×2 (08:02→16:11)
[2016-04-16] MEDS: PREGABALIN 25 MG CAPSULE PO SCH ×2 (08:02→16:11)
[2016-04-16] MEDS: FLUVOXAMINE MALEATE 50 MG TABLET PO SCH ×2 (08:02→16:11)
[2016-04-16] MEDS: PROPRANOLOL HCL 10 MG TABLET PO SCH (08:02)
[2016-04-16] MEDS: CLOZAPINE 100 MG TABLET PO SCH ×2 (08:02→21:21)
[2016-04-16] MEDS: ENOXAPARIN SODIUM 40 MG/0.4 ML DISP.SYRIN SQ SCH (08:07)
[2016-04-16] MEDS: AZITHROMYCIN 250 MG TABLET PO SCH (10:05)
[2016-04-16] MEDS ORDERED: POTASSIUM CHLORIDE 20 MEQ TAB.PRT.SR PO SCH (11:00)
[2016-04-16] MEDS ORDERED: IV SET PRIMARY PUMP SET 1 EA INFUS.SET MC ONE (14:36)
[2016-04-16] MEDS: FIBERSOURCE HN 1,000 ML BOTTLE GT PRN (14:39)
[2016-04-16] MEDS ORDERED: NEUTRA PHOS 1 POWD.PACKET GT ONE (16:00)
[2016-04-16] MEDS: ACETAMINOPHEN 325 MG TABLET PO PRN (16:11)
[2016-04-17] VITALS (46 sets, daily range): BP systolic 83–141; BP diastolic 43–82
[2016-04-17] MEDS: MORPHINE SULFATE INJ 2 MG/ML DISP.SYRIN IV PRN ×4 (00:18→23:58)
[2016-04-17] MEDS: MAGNESIUM HYDROXIDE 30 ML UDC PO PRN ×2 (00:30→19:13)
[2016-04-17] MEDS: ACETAMINOPHEN 325 MG TABLET PO PRN ×2 (00:31→16:38)
[2016-04-17] MEDS: ALBUTEROL HALF STRENGTH 1.25 MG/3 ML VIAL.NEB NEB SCH ×6 (03:11→23:39)
[2016-04-17] MEDS: IPRATROPIUM NEB FS 0.5 MG/2.5 ML AMPUL.NEB NEB SCH ×6 (03:11→23:39)
[2016-04-17] MEDS: IV D5/ 0.9% NACL 1,000 ML IV PRN (03:24)
[2016-04-17 04:56] LABS: BASOPHILS % (AUTO) 0.2 % (0.0-2.0); DIFF TOTAL % 100 %; HEMATOCRIT 32 % (33-45); HEMOGLOBIN 10.6 g/dL (11.5-14.8); LYMPHOCYTES # (AUTO) 1.1 /CMM (0.8-4.8); LYMPHOCYTES % (AUTO) 15.3 % (20.0-44.0); MEAN CORPUSCULAR HEMOGLOBIN 29 PG (26.0-33.0); MEAN CORPUSCULAR HGB CONC 33 g/dl (31.0-36.0); MEAN CORPUSCULAR VOLUME 87 fL (82-100); MONOCYTES # (AUTO) 0.4 /CMM (0.1-1.30); MONOCYTES % (AUTO) 5.2 % (2.0-12.0); NEUTROPHILS # (AUTO) 5.5 /CMM (1.8-8.9); NEUTROPHILS % (AUTO) 79.3 % (43.0-81.0); PLATELET COUNT (AUTO) 215 /CMM (150-450); RED BLOOD CELL COUNT(AUTO) 3.68 MIL/uL (4.0-5.2); WHITE BLOOD COUNT (AUTO) 6.9 K/uL (4.3-11.0)
[2016-04-17 05:08] LABS: CALCIUM, SERUM 8.1 mg/dL (8.5-10.1); CREATININE 0.6 mg/dL (0.6-1.3); PHOSPHORUS 1.9 mg/dL (2.5-4.9); POTASSIUM 3.2 mmol/L (3.5-5.1)
[2016-04-17] MEDS: VANCOMYCIN 1 GM in IV D5W 250 ML IV SCH ×3 (05:29→20:47)
[2016-04-17] MEDS: LORAZEPAM 0.5 MG TABLET PO SCH ×4 (05:29→23:56)
[2016-04-17] MEDS: PIPERACILLIN /TAZOBACTAM 3.375 G in IV D5W 50 ML IV SCH ×4 (06:00→23:56)
[2016-04-17] MEDS: ACETYLCYSTEINE 10% SOLN 400 MG/4 ML VIAL NEB SCH ×3 (07:18→23:39)
[2016-04-17] MEDS: SIMVASTATIN 40 MG TABLET PO SCH (08:17)
[2016-04-17] MEDS: FLUVOXAMINE MALEATE 50 MG TABLET PO SCH ×2 (08:17→17:14)
[2016-04-17] MEDS: SERTRALINE HCL 50 MG TABLET PO SCH ×2 (08:17→17:13)
[2016-04-17] MEDS: CLOZAPINE 100 MG TABLET PO SCH ×2 (08:17→21:15)
[2016-04-17] MEDS: PANTOPRAZOLE 40 MG VIAL IV SCH (08:18)
[2016-04-17] MEDS: PREGABALIN 25 MG CAPSULE PO SCH ×2 (08:18→17:13)
[2016-04-17] MEDS: ENOXAPARIN SODIUM 40 MG/0.4 ML DISP.SYRIN SQ SCH (08:19)
[2016-04-17] MEDS: PROPRANOLOL HCL 10 MG TABLET PO SCH (08:20)
[2016-04-17] MEDS ORDERED: NEUTRA PHOS 1 POWD.PACKET NG ONE (09:30)
[2016-04-17] MEDS: POTASSIUM CL. PREMIX PERIPHER. 50 ML IV SCH ×4 (10:02→13:20)
[2016-04-17] MEDS: AZITHROMYCIN 250 MG TABLET PO SCH (10:53)
[2016-04-17] MEDS: FIBERSOURCE HN 1,000 ML BOTTLE GT PRN (10:57)
[2016-04-17] MEDS: LORAZEPAM INJ 2 MG/ML VIAL IV PRN ×2 (11:38→16:38)
[2016-04-17] MEDS: LACTOBACILLUS RHAMNOSUS GG 1 EACH CAP.SPRINK GT SCH (17:13)
[2016-04-17] MEDS ORDERED: IV SET PRIMARY PUMP SET 1 EA INFUS.SET MC ONE (20:48)
[2016-04-17] MEDS ORDERED: IV D5W 250 ML IV ONE (20:48)
[2016-04-18] VITALS (36 sets, daily range): BP systolic 89–134; BP diastolic 48–73
[2016-04-18] MEDS: IV D5/ 0.9% NACL 1,000 ML IV PRN (02:26)
[2016-04-18] MEDS: IPRATROPIUM NEB FS 0.5 MG/2.5 ML AMPUL.NEB NEB SCH ×5 (03:28→19:35)
[2016-04-18] MEDS: ALBUTEROL HALF STRENGTH 1.25 MG/3 ML VIAL.NEB NEB SCH ×6 (03:28→23:30)
[2016-04-18] MEDS: VANCOMYCIN 1 GM in IV D5W 250 ML IV SCH ×3 (04:28→21:04)
[2016-04-18 05:10] LABS: BASOPHILS % (AUTO) 0.2 % (0.0-2.0); DIFF TOTAL % 100 %; HEMATOCRIT 30 % (33-45); HEMOGLOBIN 10.1 g/dL (11.5-14.8); LYMPHOCYTES # (AUTO) 1.3 /CMM (0.8-4.8); LYMPHOCYTES % (AUTO) 20.1 % (20.0-44.0); MEAN CORPUSCULAR HEMOGLOBIN 29 PG (26.0-33.0); MEAN CORPUSCULAR HGB CONC 34 g/dl (31.0-36.0); MEAN CORPUSCULAR VOLUME 87 fL (82-100); MONOCYTES # (AUTO) 0.3 /CMM (0.1-1.30); MONOCYTES % (AUTO) 4.8 % (2.0-12.0); NEUTROPHILS # (AUTO) 4.7 /CMM (1.8-8.9); NEUTROPHILS % (AUTO) 74.9 % (43.0-81.0); PLATELET COUNT (AUTO) 215 /CMM (150-450); RED BLOOD CELL COUNT(AUTO) 3.46 MIL/uL (4.0-5.2); WHITE BLOOD COUNT (AUTO) 6.2 K/uL (4.3-11.0)
[2016-04-18 05:25] LABS: CALCIUM, SERUM 7.9 mg/dL (8.5-10.1); CREATININE 0.6 mg/dL (0.6-1.3); PHOSPHORUS 2.5 mg/dL (2.5-4.9); POTASSIUM 4.2 mmol/L (3.5-5.1)
[2016-04-18] MEDS: LORAZEPAM 0.5 MG TABLET PO SCH ×3 (05:26→17:44)
[2016-04-18] MEDS: PIPERACILLIN /TAZOBACTAM 3.375 G in IV D5W 50 ML IV SCH ×3 (05:27→17:43)
[2016-04-18] MEDS: ACETYLCYSTEINE 10% SOLN 400 MG/4 ML VIAL NEB SCH ×2 (06:55→15:18)
[2016-04-18] MEDS: FLUVOXAMINE MALEATE 50 MG TABLET PO SCH ×2 (08:49→17:44)
[2016-04-18] MEDS: PREGABALIN 25 MG CAPSULE PO SCH ×2 (08:49→17:43)
[2016-04-18] MEDS: PROPRANOLOL HCL 10 MG TABLET PO SCH (08:49)
[2016-04-18] MEDS: CLOZAPINE 100 MG TABLET PO SCH ×2 (08:50→21:03)
[2016-04-18] MEDS: SERTRALINE HCL 50 MG TABLET PO SCH ×2 (08:50→17:44)
[2016-04-18] MEDS: LACTOBACILLUS RHAMNOSUS GG 1 EACH CAP.SPRINK GT SCH ×2 (08:50→17:43)
[2016-04-18] MEDS: SIMVASTATIN 40 MG TABLET PO SCH (08:50)
[2016-04-18] MEDS: ENOXAPARIN SODIUM 40 MG/0.4 ML DISP.SYRIN SQ SCH (08:52)
[2016-04-18] MEDS: PANTOPRAZOLE 40 MG VIAL IV SCH (09:00)
[2016-04-18] MEDS: LORAZEPAM INJ 2 MG/ML VIAL IV PRN (10:12)
[2016-04-18] MEDS: AZITHROMYCIN 250 MG TABLET PO SCH (11:26)
[2016-04-18] MEDS: HYDROCODONE/APAP 5/325MG 1 EACH TABLET PO PRN ×2 (15:18→21:56)
[2016-04-19] VITALS (37 sets, daily range): BP systolic 94–131; BP diastolic 48–83
[2016-04-19] MEDS: PIPERACILLIN /TAZOBACTAM 3.375 G in IV D5W 50 ML IV SCH ×4 (00:02→17:52)
[2016-04-19] MEDS: LORAZEPAM 0.5 MG TABLET PO SCH ×5 (00:03→23:14)
[2016-04-19] MEDS: ACETYLCYSTEINE 10% SOLN 400 MG/4 ML VIAL NEB SCH ×4 (00:09→23:46)
[2016-04-19] MEDS: IPRATROPIUM NEB FS 0.5 MG/2.5 ML AMPUL.NEB NEB SCH ×7 (00:09→23:46)
[2016-04-19] MEDS: FIBERSOURCE HN 1,000 ML BOTTLE GT PRN ×2 (03:04→23:51)
[2016-04-19] MEDS: HYDROCODONE/APAP 5/325MG 1 EACH TABLET PO PRN (03:04)
[2016-04-19] MEDS: IV D5/ 0.9% NACL 1,000 ML IV PRN (03:04)
[2016-04-19] MEDS: ALBUTEROL HALF STRENGTH 1.25 MG/3 ML VIAL.NEB NEB SCH ×6 (03:30→23:30)
[2016-04-19] MEDS: VANCOMYCIN 1 GM in IV D5W 250 ML IV SCH ×2 (04:41→12:33)
[2016-04-19 05:08] LABS: BASOPHILS % (AUTO) 0.2 % (0.0-2.0); DIFF TOTAL % 100 %; HEMATOCRIT 27 % (33-45); HEMOGLOBIN 9.2 g/dL (11.5-14.8); LYMPHOCYTES # (AUTO) 1.2 /CMM (0.8-4.8); LYMPHOCYTES % (AUTO) 16.3 % (20.0-44.0); MEAN CORPUSCULAR HEMOGLOBIN 29 PG (26.0-33.0); MEAN CORPUSCULAR HGB CONC 34 g/dl (31.0-36.0); MEAN CORPUSCULAR VOLUME 88 fL (82-100); MONOCYTES # (AUTO) 0.5 /CMM (0.1-1.30); NEUTROPHILS # (AUTO) 5.9 /CMM (1.8-8.9); NEUTROPHILS % (AUTO) 77.5 % (43.0-81.0); PLATELET COUNT (AUTO) 216 /CMM (150-450); RED BLOOD CELL COUNT(AUTO) 3.12 MIL/uL (4.0-5.2); WHITE BLOOD COUNT (AUTO) 7.6 K/uL (4.3-11.0)
[2016-04-19 05:20] LABS: CALCIUM, SERUM 7.8 mg/dL (8.5-10.1); CREATININE 0.8 mg/dL (0.6-1.3); PHOSPHORUS 2.9 mg/dL (2.5-4.9); POTASSIUM 3.8 mmol/L (3.5-5.1)
[2016-04-19] MEDS: SERTRALINE HCL 50 MG TABLET PO SCH ×2 (08:10→17:52)
[2016-04-19] MEDS: PANTOPRAZOLE 40 MG VIAL IV SCH (08:10)
[2016-04-19] MEDS: FLUVOXAMINE MALEATE 50 MG TABLET PO SCH ×2 (08:10→17:52)
[2016-04-19] MEDS: PROPRANOLOL HCL 10 MG TABLET PO SCH (08:11)
[2016-04-19] MEDS: SIMVASTATIN 40 MG TABLET PO SCH (08:11)
[2016-04-19] MEDS: CLOZAPINE 100 MG TABLET PO SCH ×2 (08:11→21:30)
[2016-04-19] MEDS: LACTOBACILLUS RHAMNOSUS GG 1 EACH CAP.SPRINK GT SCH ×2 (08:11→17:52)
[2016-04-19] MEDS: ENOXAPARIN SODIUM 40 MG/0.4 ML DISP.SYRIN SQ SCH (08:12)
[2016-04-19] MEDS: NEOMY SULF/BACITRAC ZN/POLY 15 GM TUBE TP SCH ×2 (09:20→17:52)
[2016-04-19] MEDS: PREGABALIN 25 MG CAPSULE PO SCH ×2 (09:21→17:52)
[2016-04-19] MEDS: ACETAMINOPHEN 325 MG TABLET PO PRN ×2 (09:21→23:51)
[2016-04-19] MEDS ORDERED: IV SET PRIMARY PUMP SET 1 EA INFUS.SET MC ONE ×2 (10:13→20:49)
[2016-04-19] MEDS: PROPOFOL 100 ML IV PRN ×2 (10:19→18:20)
[2016-04-19] MEDS: AZITHROMYCIN 250 MG TABLET PO SCH (12:27)
[2016-04-19] MEDS ORDERED: SECONDARY IV SET 1 EA INFUS.SET MC ONE (12:29)
[2016-04-19] MEDS: LEVOFLOXACIN (500MG) 500 MG TABLET PO SCH (21:30)
[2016-04-20] VITALS (42 sets, daily range): BP systolic 88–158; BP diastolic 31–83
[2016-04-20] MEDS: PROPOFOL 100 ML IV PRN ×4 (01:20→22:12)
[2016-04-20] MEDS: ALBUTEROL HALF STRENGTH 1.25 MG/3 ML VIAL.NEB NEB SCH ×6 (03:49→23:48)
[2016-04-20] MEDS: IPRATROPIUM NEB FS 0.5 MG/2.5 ML AMPUL.NEB NEB SCH ×6 (03:49→23:48)
[2016-04-20] MEDS: LORAZEPAM 0.5 MG TABLET PO SCH ×4 (05:03→23:36)
[2016-04-20] MEDS: IV D5/ 0.9% NACL 1,000 ML IV PRN ×2 (05:03→17:07)
[2016-04-20 05:24] LABS: CALCIUM, SERUM 8.5 mg/dL (8.5-10.1); CREATININE 0.7 mg/dL (0.6-1.3); POTASSIUM 4.2 mmol/L (3.5-5.1)
[2016-04-20] MEDS: ACETYLCYSTEINE 10% SOLN 400 MG/4 ML VIAL NEB SCH ×3 (07:24→23:48)
[2016-04-20] MEDS: SIMVASTATIN 40 MG TABLET PO SCH (08:18)
[2016-04-20] MEDS: PREGABALIN 25 MG CAPSULE PO SCH ×2 (08:18→17:07)
[2016-04-20] MEDS: PROPRANOLOL HCL 10 MG TABLET PO SCH (08:19)
[2016-04-20] MEDS: CLOZAPINE 100 MG TABLET PO SCH ×2 (08:19→21:40)
[2016-04-20] MEDS: SERTRALINE HCL 50 MG TABLET PO SCH ×2 (08:19→17:08)
[2016-04-20] MEDS: FLUVOXAMINE MALEATE 50 MG TABLET PO SCH ×2 (08:20→17:08)
[2016-04-20] MEDS: LACTOBACILLUS RHAMNOSUS GG 1 EACH CAP.SPRINK GT SCH ×2 (08:20→17:08)
[2016-04-20] MEDS: PANTOPRAZOLE 40 MG VIAL IV SCH (08:20)
[2016-04-20] MEDS: NEOMY SULF/BACITRAC ZN/POLY 15 GM TUBE TP SCH ×2 (08:21→17:08)
[2016-04-20] MEDS: ENOXAPARIN SODIUM 40 MG/0.4 ML DISP.SYRIN SQ SCH (08:24)
[2016-04-20 08:42] LABS: ABG BASE EXCESS 3.3 mmol/L; ABG PCO2 32.6 mmHg (35.0-45.0); ABG PO2 83.5 mmHg (75.0-100.0); ABG TOTAL HEMOGLOBIN 9.9 G/dL (12.0-16.0); AaDO2 164.2 mmHg
[2016-04-20] MEDS ORDERED: IV SET PRIMARY PUMP SET 1 EA INFUS.SET MC ONE ×2 (13:09→19:36)
[2016-04-20] MEDS: FIBERSOURCE HN 1,000 ML BOTTLE GT PRN (17:07)
[2016-04-20] MEDS: DOCUSATE SODIUM 250 MG CAPSULE PO SCH (17:08)
[2016-04-20] MEDS: LEVOFLOXACIN (500MG) 500 MG TABLET PO SCH (20:02)
[2016-04-20] MEDS ORDERED: SENNOSIDES 8.6 MG TABLET PO PRN (21:00)
[2016-04-21] VITALS (36 sets, daily range): BP systolic 95–148; BP diastolic 53–85
[2016-04-21] MEDS: IPRATROPIUM NEB FS 0.5 MG/2.5 ML AMPUL.NEB NEB SCH ×6 (03:47→23:30)
[2016-04-21] MEDS: ALBUTEROL HALF STRENGTH 1.25 MG/3 ML VIAL.NEB NEB SCH ×6 (03:48→23:52)
[2016-04-21 04:38] LABS: BASOPHILS % (AUTO) 0.3 % (0.0-2.0); DIFF TOTAL % 100 %; HEMATOCRIT 27 % (33-45); HEMOGLOBIN 9.1 g/dL (11.5-14.8); LYMPHOCYTES # (AUTO) 1.2 /CMM (0.8-4.8); LYMPHOCYTES % (AUTO) 18.3 % (20.0-44.0); MEAN CORPUSCULAR HEMOGLOBIN 29 PG (26.0-33.0); MEAN CORPUSCULAR HGB CONC 34 g/dl (31.0-36.0); MEAN CORPUSCULAR VOLUME 87 fL (82-100); MONOCYTES # (AUTO) 0.5 /CMM (0.1-1.30); MONOCYTES % (AUTO) 7.7 % (2.0-12.0); NEUTROPHILS # (AUTO) 4.7 /CMM (1.8-8.9); NEUTROPHILS % (AUTO) 73.7 % (43.0-81.0); PLATELET COUNT (AUTO) 255 /CMM (150-450); RED BLOOD CELL COUNT(AUTO) 3.13 MIL/uL (4.0-5.2); WHITE BLOOD COUNT (AUTO) 6.4 K/uL (4.3-11.0)
[2016-04-21 04:57] LABS: CALCIUM, SERUM 8.1 mg/dL (8.5-10.1); CREATININE 0.6 mg/dL (0.6-1.3); POTASSIUM 3.9 mmol/L (3.5-5.1)
[2016-04-21] MEDS: LORAZEPAM 0.5 MG TABLET PO SCH ×3 (05:36→17:07)
[2016-04-21] MEDS: PROPOFOL 100 ML IV PRN ×3 (06:42→18:32)
[2016-04-21] MEDS: ACETYLCYSTEINE 10% SOLN 400 MG/4 ML VIAL NEB SCH ×3 (07:13→23:52)
[2016-04-21] MEDS: PANTOPRAZOLE 40 MG VIAL IV SCH (08:04)
[2016-04-21] MEDS: PREGABALIN 25 MG CAPSULE PO SCH ×2 (08:04→17:07)
[2016-04-21] MEDS: SIMVASTATIN 40 MG TABLET PO SCH (08:04)
[2016-04-21] MEDS: SERTRALINE HCL 50 MG TABLET PO SCH ×2 (08:05→17:07)
[2016-04-21] MEDS: CLOZAPINE 100 MG TABLET PO SCH ×2 (08:05→22:08)
[2016-04-21] MEDS: FLUVOXAMINE MALEATE 50 MG TABLET PO SCH ×2 (08:05→17:07)
[2016-04-21] MEDS: LACTOBACILLUS RHAMNOSUS GG 1 EACH CAP.SPRINK GT SCH ×2 (08:05→17:07)
[2016-04-21] MEDS: PROPRANOLOL HCL 10 MG TABLET PO SCH (08:06)
[2016-04-21] MEDS: DOCUSATE SODIUM 250 MG CAPSULE PO SCH ×2 (08:06→17:07)
[2016-04-21] MEDS: NEOMY SULF/BACITRAC ZN/POLY 15 GM TUBE TP SCH ×2 (08:06→17:08)
[2016-04-21] MEDS: ENOXAPARIN SODIUM 40 MG/0.4 ML DISP.SYRIN SQ SCH (08:07)
[2016-04-21] MEDS ORDERED: IV SET PRIMARY PUMP SET 1 EA INFUS.SET MC ONE ×2 (13:04→21:39)
[2016-04-21] MEDS: FIBERSOURCE HN 1,000 ML BOTTLE GT PRN (14:05)
[2016-04-21] MEDS: IV D5/ 0.9% NACL 1,000 ML IV PRN (14:06)
[2016-04-21] MEDS: ACYCLOVIR 200 MG CAPSULE PO SCH (18:33)
[2016-04-22] VITALS (30 sets, daily range): BP systolic 102–157; BP diastolic 20–82
[2016-04-22] MEDS: LORAZEPAM 0.5 MG TABLET PO SCH ×4 (00:27→17:59)
[2016-04-22] MEDS: PROPOFOL 100 ML IV PRN ×2 (01:02→09:52)
[2016-04-22] MEDS: ALBUTEROL HALF STRENGTH 1.25 MG/3 ML VIAL.NEB NEB SCH ×5 (03:55→20:18)
[2016-04-22] MEDS: IPRATROPIUM NEB FS 0.5 MG/2.5 ML AMPUL.NEB NEB SCH ×5 (03:55→20:18)
[2016-04-22 05:06] LABS: CALCIUM, SERUM 8.4 mg/dL (8.5-10.1); CREATININE 0.6 mg/dL (0.6-1.3); POTASSIUM 3.8 mmol/L (3.5-5.1)
[2016-04-22] MEDS: ACETYLCYSTEINE 10% SOLN 400 MG/4 ML VIAL NEB SCH ×2 (07:32→15:17)
[2016-04-22] MEDS: PANTOPRAZOLE 40 MG VIAL IV SCH (08:50)
[2016-04-22] MEDS: SERTRALINE HCL 50 MG TABLET PO SCH ×2 (08:50→16:00)
[2016-04-22] MEDS: SIMVASTATIN 40 MG TABLET PO SCH (08:50)
[2016-04-22] MEDS: PREGABALIN 25 MG CAPSULE PO SCH ×2 (08:50→16:00)
[2016-04-22] MEDS: FLUVOXAMINE MALEATE 50 MG TABLET PO SCH ×2 (08:50→16:00)
[2016-04-22] MEDS: LACTOBACILLUS RHAMNOSUS GG 1 EACH CAP.SPRINK GT SCH ×2 (08:50→16:00)
[2016-04-22] MEDS: CLOZAPINE 100 MG TABLET PO SCH ×2 (08:50→22:03)
[2016-04-22] MEDS: ACYCLOVIR 200 MG CAPSULE PO SCH ×3 (08:51→16:00)
[2016-04-22] MEDS: PROPRANOLOL HCL 10 MG TABLET PO SCH (08:51)
[2016-04-22] MEDS: NEOMY SULF/BACITRAC ZN/POLY 15 GM TUBE TP SCH ×2 (08:51→16:01)
[2016-04-22] MEDS: ENOXAPARIN SODIUM 40 MG/0.4 ML DISP.SYRIN SQ SCH (08:53)
[2016-04-22] MEDS: DOCUSATE SODIUM 250 MG CAPSULE PO SCH (09:00)
[2016-04-22] MEDS: LORAZEPAM INJ 2 MG/ML VIAL IV PRN (09:22)
[2016-04-22] MEDS ORDERED: DC PROPOFOL WHEN EXTUBATED XX PRN ×2 (11:00→12:52)
[2016-04-22 12:33] LABS: ABG BASE EXCESS 5.3 mmol/L; ABG HCO3 30.4 mmol/L; ABG PCO2 46.9 mmHg (35.0-45.0); ABG PH 7.429 (7.350-7.450); ABG PO2 107.9 mmHg (75.0-100.0); ALLEN TEST Pass; AaDO2 123.4 mmHg; O2Hb 95.5 % (94.0-97.0)
[2016-04-22] MEDS: FIBERSOURCE HN 1,000 ML BOTTLE GT PRN (16:00)
[2016-04-22] MEDS: IV D5/ 0.9% NACL 1,000 ML IV PRN (16:00)
[2016-04-22] MEDS: DOCUSATE SODIUM LIQ 100 MG/10 ML UDC GT SCH (16:01)
[2016-04-22] MEDS ORDERED: LORAZEPAM INJ 2 MG/ML VIAL IV PRN (21:00)
[2016-04-22] MEDS: MAGNESIUM HYDROXIDE 30 ML UDC PO PRN (21:33)
[2016-04-22 21:50] LABS: ABG BASE EXCESS 5.2 mmol/L; ABG HCO3 29.9 mmol/L; ABG PCO2 44.9 mmHg (35.0-45.0); ABG PH 7.442 (7.350-7.450); ABG PO2 57.8 mmHg (75.0-100.0); ABG TOTAL HEMOGLOBIN 9.8 G/dL (12.0-16.0); AaDO2 146.8 mmHg
[2016-04-23] VITALS (24 sets, daily range): BP systolic 102–155; BP diastolic 59–82
[2016-04-23] MEDS: ACETYLCYSTEINE 10% SOLN 400 MG/4 ML VIAL NEB SCH ×4 (00:26→23:43)
[2016-04-23] MEDS: ALBUTEROL HALF STRENGTH 1.25 MG/3 ML VIAL.NEB NEB SCH ×7 (00:26→23:43)
[2016-04-23] MEDS: IPRATROPIUM NEB FS 0.5 MG/2.5 ML AMPUL.NEB NEB SCH ×7 (00:26→23:43)
[2016-04-23 05:24] LABS: CALCIUM, SERUM 8.8 mg/dL (8.5-10.1); CREATININE 0.5 mg/dL (0.6-1.3); POTASSIUM 3.6 mmol/L (3.5-5.1)
[2016-04-23] MEDS: LORAZEPAM 0.5 MG TABLET PO SCH ×4 (06:00→17:03)
[2016-04-23 07:29] LABS: ABG BASE EXCESS 5.9 mmol/L; ABG HCO3 29.5 mmol/L; ABG PCO2 39.1 mmHg (35.0-45.0); ABG PH 7.496 (7.350-7.450); ABG PO2 76.2 mmHg (75.0-100.0); ALLEN TEST Pass; O2Hb 93.5 % (94.0-97.0)
[2016-04-23] MEDS: DOCUSATE SODIUM LIQ 100 MG/10 ML UDC GT SCH ×2 (08:17→16:37)
[2016-04-23] MEDS: CLOZAPINE 100 MG TABLET PO SCH ×2 (08:18→21:28)
[2016-04-23] MEDS: LACTOBACILLUS RHAMNOSUS GG 1 EACH CAP.SPRINK GT SCH ×2 (08:18→16:38)
[2016-04-23] MEDS: PREGABALIN 25 MG CAPSULE PO SCH ×2 (08:18→16:38)
[2016-04-23] MEDS: SERTRALINE HCL 50 MG TABLET PO SCH ×2 (08:18→16:38)
[2016-04-23] MEDS: PROPRANOLOL HCL 10 MG TABLET PO SCH (08:18)
[2016-04-23] MEDS: PANTOPRAZOLE 40 MG VIAL IV SCH (08:19)
[2016-04-23] MEDS: FLUVOXAMINE MALEATE 50 MG TABLET PO SCH ×2 (08:19→16:38)
[2016-04-23] MEDS: ACYCLOVIR 200 MG CAPSULE PO SCH ×3 (08:19→16:38)
[2016-04-23] MEDS: NEOMY SULF/BACITRAC ZN/POLY 15 GM TUBE TP SCH ×2 (08:20→16:38)
[2016-04-23] MEDS: SIMVASTATIN 40 MG TABLET PO SCH (08:20)
[2016-04-23] MEDS: ENOXAPARIN SODIUM 40 MG/0.4 ML DISP.SYRIN SQ SCH (08:20)
[2016-04-23] MEDS ORDERED: IV SET PRIMARY PUMP SET 1 EA INFUS.SET MC ONE (10:11)
[2016-04-23] MEDS: IV 1/2NS 1000 ML 1,000 ML IV PRN (10:12)
[2016-04-23] MEDS ORDERED: clonazePAM 1 MG TABLET NG PRN (13:00)
[2016-04-23] MEDS ORDERED: LORAZEPAM INJ 2 MG/ML VIAL IV ONE (14:30)
[2016-04-23] MEDS: clonazePAM 1 MG TABLET NG SCH (21:38)
[2016-04-24] VITALS (25 sets, daily range): BP systolic 100–155; BP diastolic 47–98
[2016-04-24] MEDS: LORAZEPAM 0.5 MG TABLET PO SCH ×3 (00:15→12:00)
[2016-04-24] MEDS: IV 1/2NS 1000 ML 1,000 ML IV PRN ×2 (02:11→18:03)
[2016-04-24] MEDS: IPRATROPIUM NEB FS 0.5 MG/2.5 ML AMPUL.NEB NEB SCH ×5 (03:28→19:30)
[2016-04-24] MEDS: ALBUTEROL HALF STRENGTH 1.25 MG/3 ML VIAL.NEB NEB SCH ×5 (03:28→19:55)
[2016-04-24 04:54] LABS: BASOPHILS % (AUTO) 0.5 % (0.0-2.0); DIFF TOTAL % 100 %; HEMATOCRIT 31 % (33-45); HEMOGLOBIN 10.4 g/dL (11.5-14.8); LYMPHOCYTES # (AUTO) 1.1 /CMM (0.8-4.8); LYMPHOCYTES % (AUTO) 15.5 % (20.0-44.0); MEAN CORPUSCULAR HEMOGLOBIN 29 PG (26.0-33.0); MEAN CORPUSCULAR HGB CONC 34 g/dl (31.0-36.0); MEAN CORPUSCULAR VOLUME 86 fL (82-100); MONOCYTES # (AUTO) 0.3 /CMM (0.1-1.30); MONOCYTES % (AUTO) 4.6 % (2.0-12.0); NEUTROPHILS # (AUTO) 5.7 /CMM (1.8-8.9); NEUTROPHILS % (AUTO) 79.4 % (43.0-81.0); PLATELET COUNT (AUTO) 394 /CMM (150-450); RED BLOOD CELL COUNT(AUTO) 3.63 MIL/uL (4.0-5.2); WHITE BLOOD COUNT (AUTO) 7.1 K/uL (4.3-11.0)
[2016-04-24 05:03] LABS: CALCIUM, SERUM 8.9 mg/dL (8.5-10.1); CREATININE 0.5 mg/dL (0.6-1.3); POTASSIUM 3.5 mmol/L (3.5-5.1)
[2016-04-24] MEDS: clonazePAM 1 MG TABLET NG SCH ×3 (06:23→21:23)
[2016-04-24] MEDS: ACETYLCYSTEINE 10% SOLN 400 MG/4 ML VIAL NEB SCH ×2 (07:26→14:38)
[2016-04-24] MEDS: LACTOBACILLUS RHAMNOSUS GG 1 EACH CAP.SPRINK GT SCH ×2 (08:07→16:18)
[2016-04-24] MEDS: ACYCLOVIR 200 MG CAPSULE PO SCH ×3 (08:07→16:18)
[2016-04-24] MEDS: PREGABALIN 25 MG CAPSULE PO SCH ×2 (08:07→16:18)
[2016-04-24] MEDS: PANTOPRAZOLE 40 MG VIAL IV SCH (08:07)
[2016-04-24] MEDS: SERTRALINE HCL 50 MG TABLET PO SCH ×2 (08:08→16:18)
[2016-04-24] MEDS: FLUVOXAMINE MALEATE 50 MG TABLET PO SCH ×2 (08:08→16:18)
[2016-04-24] MEDS: SIMVASTATIN 40 MG TABLET PO SCH (08:08)
[2016-04-24] MEDS: PROPRANOLOL HCL 10 MG TABLET PO SCH (08:08)
[2016-04-24] MEDS: CLOZAPINE 100 MG TABLET PO SCH ×2 (08:08→21:24)
[2016-04-24] MEDS: NEOMY SULF/BACITRAC ZN/POLY 15 GM TUBE TP SCH ×2 (08:09→16:19)
[2016-04-24] MEDS: ENOXAPARIN SODIUM 40 MG/0.4 ML DISP.SYRIN SQ SCH (08:10)
[2016-04-24] MEDS: DOCUSATE SODIUM LIQ 100 MG/10 ML UDC GT SCH ×2 (09:06→16:18)
[2016-04-25] VITALS (15 sets, daily range): BP systolic 99–133; BP diastolic 44–70
[2016-04-25] MEDS: IPRATROPIUM NEB FS 0.5 MG/2.5 ML AMPUL.NEB NEB SCH ×7 (00:04→23:22)
[2016-04-25] MEDS: ACETYLCYSTEINE 10% SOLN 400 MG/4 ML VIAL NEB SCH ×4 (00:04→23:22)
[2016-04-25] MEDS: ALBUTEROL HALF STRENGTH 1.25 MG/3 ML VIAL.NEB NEB SCH ×7 (00:04→23:22)
[2016-04-25 05:06] LABS: CALCIUM, SERUM 8.5 mg/dL (8.5-10.1); CREATININE 0.5 mg/dL (0.6-1.3); PHOSPHORUS 3.9 mg/dL (2.5-4.9); POTASSIUM 3.4 mmol/L (3.5-5.1)
[2016-04-25] MEDS: clonazePAM 1 MG TABLET NG SCH ×4 (05:19→21:51)
[2016-04-25] MEDS: ACYCLOVIR 200 MG CAPSULE PO SCH ×3 (08:21→16:02)
[2016-04-25] MEDS: SIMVASTATIN 40 MG TABLET PO SCH (08:22)
[2016-04-25] MEDS: LACTOBACILLUS RHAMNOSUS GG 1 EACH CAP.SPRINK GT SCH ×2 (08:22→16:03)
[2016-04-25] MEDS: PROPRANOLOL HCL 10 MG TABLET PO SCH (08:22)
[2016-04-25] MEDS: DOCUSATE SODIUM LIQ 100 MG/10 ML UDC GT SCH ×2 (08:23→16:02)
[2016-04-25] MEDS: PANTOPRAZOLE 40 MG VIAL IV SCH (08:23)
[2016-04-25] MEDS: FLUVOXAMINE MALEATE 50 MG TABLET PO SCH ×2 (08:23→17:41)
[2016-04-25] MEDS: PREGABALIN 25 MG CAPSULE PO SCH ×2 (08:24→16:02)
[2016-04-25] MEDS: ENOXAPARIN SODIUM 40 MG/0.4 ML DISP.SYRIN SQ SCH (08:27)
[2016-04-25] MEDS: Z GUARD REMEDY 2 OZ OINT TP PRN (08:28)
[2016-04-25] MEDS: NEOMY SULF/BACITRAC ZN/POLY 15 GM TUBE TP SCH ×2 (09:04→16:03)
[2016-04-25] MEDS: CLOZAPINE 100 MG TABLET PO SCH ×3 (09:04→21:57)
[2016-04-25] MEDS: SERTRALINE HCL 50 MG TABLET PO SCH ×2 (09:04→16:03)
[2016-04-25] MEDS ORDERED: POTASSIUM CHLORIDE 20 MEQ TAB.PRT.SR PO ONE ×2 (10:00)
[2016-04-25] MEDS: IV 1/2NS 1000 ML 1,000 ML IV PRN (16:49)
[2016-04-26] VITALS: BP 105/45
[2016-04-26] MEDS: IPRATROPIUM NEB FS 0.5 MG/2.5 ML AMPUL.NEB NEB SCH ×6 (03:50→23:22)
[2016-04-26] MEDS: ALBUTEROL HALF STRENGTH 1.25 MG/3 ML VIAL.NEB NEB SCH ×6 (03:50→23:23)
[2016-04-26 04:00] VITALS: BP 124/56
[2016-04-26] MEDS: clonazePAM 1 MG TABLET NG SCH ×3 (05:00→21:08)
[2016-04-26] MEDS: IV 1/2NS 1000 ML 1,000 ML IV PRN (05:34)
[2016-04-26 07:01] LABS: CALCIUM, SERUM 8.9 mg/dL (8.5-10.1); CREATININE 0.5 mg/dL (0.6-1.3); POTASSIUM 3.8 mmol/L (3.5-5.1)
[2016-04-26] MEDS: ACETYLCYSTEINE 10% SOLN 400 MG/4 ML VIAL NEB SCH ×3 (07:17→23:22)
[2016-04-26 07:58] LABS: BASOPHILS % (AUTO) 0.5 % (0.0-2.0); DIFF TOTAL % 100 %; HEMATOCRIT 31 % (33-45); HEMOGLOBIN 10.3 g/dL (11.5-14.8); LYMPHOCYTES # (AUTO) 1.2 /CMM (0.8-4.8); LYMPHOCYTES % (AUTO) 18.2 % (20.0-44.0); MEAN CORPUSCULAR HEMOGLOBIN 29 PG (26.0-33.0); MEAN CORPUSCULAR HGB CONC 34 g/dl (31.0-36.0); MEAN CORPUSCULAR VOLUME 87 fL (82-100); MONOCYTES # (AUTO) 0.4 /CMM (0.1-1.30); MONOCYTES % (AUTO) 6.3 % (2.0-12.0); NEUTROPHILS # (AUTO) 4.8 /CMM (1.8-8.9); PLATELET COUNT (AUTO) 450 /CMM (150-450); RED BLOOD CELL COUNT(AUTO) 3.56 MIL/uL (4.0-5.2); WHITE BLOOD COUNT (AUTO) 6.4 K/uL (4.3-11.0)
[2016-04-26 08:00] VITALS: BP 108/43
[2016-04-26] MEDS: ENOXAPARIN SODIUM 40 MG/0.4 ML DISP.SYRIN SQ SCH (08:48)
[2016-04-26] MEDS: SIMVASTATIN 40 MG TABLET PO SCH (08:49)
[2016-04-26] MEDS: CLOZAPINE 100 MG TABLET PO SCH ×2 (08:49→21:33)
[2016-04-26] MEDS: PANTOPRAZOLE 40 MG VIAL IV SCH (08:49)
[2016-04-26] MEDS: LACTOBACILLUS RHAMNOSUS GG 1 EACH CAP.SPRINK GT SCH (08:49)
[2016-04-26] MEDS: DOCUSATE SODIUM LIQ 100 MG/10 ML UDC GT SCH ×2 (08:49→16:22)
[2016-04-26] MEDS: PREGABALIN 25 MG CAPSULE PO SCH ×2 (08:50→16:24)
[2016-04-26] MEDS: SERTRALINE HCL 50 MG TABLET PO SCH ×2 (08:50→16:24)
[2016-04-26] MEDS: FLUVOXAMINE MALEATE 50 MG TABLET PO SCH ×2 (08:50→16:24)
[2016-04-26] MEDS: PROPRANOLOL HCL 10 MG TABLET PO SCH (08:50)
[2016-04-26] MEDS: Z GUARD REMEDY 2 OZ OINT TP PRN (08:51)
[2016-04-26] MEDS: NEOMY SULF/BACITRAC ZN/POLY 15 GM TUBE TP SCH ×2 (08:51→16:24)
[2016-04-26 09:04] LABS: ABG BASE EXCESS 2.9 mmol/L; ABG HCO3 28.4 mmol/L; ABG PCO2 47.5 mmHg (35.0-45.0); ABG PH 7.394 (7.350-7.450); ABG PO2 90.5 mmHg (75.0-100.0); ABG TOTAL HEMOGLOBIN 10.7 G/dL (12.0-16.0); ALLEN TEST Pass; AaDO2 111.1 mmHg; O2Hb 94.2 % (94.0-97.0)
[2016-04-26 12:00] VITALS: BP 118/54
[2016-04-26 16:00] VITALS: BP 118/60
[2016-04-26 20:00] VITALS: BP 104/49
[2016-04-27] VITALS (7 sets, daily range): BP systolic 94–130; BP diastolic 43–66
[2016-04-27] MEDS ORDERED: IPRATROPIUM NEB FS 0.5 MG/2.5 ML AMPUL.NEB ONE (02:13)
[2016-04-27] MEDS: IV 1/2NS 1000 ML 1,000 ML IV PRN ×2 (02:49→18:47)
[2016-04-27] MEDS: ALBUTEROL HALF STRENGTH 1.25 MG/3 ML VIAL.NEB NEB SCH ×6 (03:24→23:30)
[2016-04-27] MEDS: IPRATROPIUM NEB FS 0.5 MG/2.5 ML AMPUL.NEB NEB SCH ×6 (03:24→23:30)
[2016-04-27] MEDS: clonazePAM 1 MG TABLET NG SCH ×3 (06:31→21:14)
[2016-04-27 07:00] LABS: BASOPHILS % (AUTO) 0.7 % (0.0-2.0); DIFF TOTAL % 100 %; HEMATOCRIT 31 % (33-45); HEMOGLOBIN 10.3 g/dL (11.5-14.8); LYMPHOCYTES # (AUTO) 1.2 /CMM (0.8-4.8); LYMPHOCYTES % (AUTO) 19.4 % (20.0-44.0); MEAN CORPUSCULAR HEMOGLOBIN 29 PG (26.0-33.0); MEAN CORPUSCULAR HGB CONC 33 g/dl (31.0-36.0); MEAN CORPUSCULAR VOLUME 87 fL (82-100); MONOCYTES # (AUTO) 0.4 /CMM (0.1-1.30); MONOCYTES % (AUTO) 6.4 % (2.0-12.0); NEUTROPHILS # (AUTO) 4.7 /CMM (1.8-8.9); NEUTROPHILS % (AUTO) 73.5 % (43.0-81.0); PLATELET COUNT (AUTO) 451 /CMM (150-450); RED BLOOD CELL COUNT(AUTO) 3.58 MIL/uL (4.0-5.2); WHITE BLOOD COUNT (AUTO) 6.3 K/uL (4.3-11.0)
[2016-04-27 07:17] LABS: BILIRUBIN,TOTAL 0.3 mg/dL (0.2-1.0); CALCIUM, SERUM 8.5 mg/dL (8.5-10.1); CREATININE 0.5 mg/dL (0.6-1.3); POTASSIUM 3.5 mmol/L (3.5-5.1)
[2016-04-27] MEDS: ACETYLCYSTEINE 10% SOLN 400 MG/4 ML VIAL NEB SCH ×3 (07:51→23:30)
[2016-04-27] MEDS: FLUVOXAMINE MALEATE 50 MG TABLET PO SCH ×2 (09:15→17:16)
[2016-04-27] MEDS: DOCUSATE SODIUM LIQ 100 MG/10 ML UDC GT SCH ×2 (09:15→17:15)
[2016-04-27] MEDS: PREGABALIN 25 MG CAPSULE PO SCH ×2 (09:15→17:15)
[2016-04-27] MEDS: CLOZAPINE 100 MG TABLET PO SCH ×2 (09:16→21:14)
[2016-04-27] MEDS: SIMVASTATIN 40 MG TABLET PO SCH (09:16)
[2016-04-27] MEDS: SERTRALINE HCL 50 MG TABLET PO SCH ×2 (09:16→17:15)
[2016-04-27] MEDS: PROPRANOLOL HCL 10 MG TABLET PO SCH (09:16)
[2016-04-27] MEDS: PANTOPRAZOLE 40 MG VIAL IV SCH (09:16)
[2016-04-27] MEDS: NEOMY SULF/BACITRAC ZN/POLY 15 GM TUBE TP SCH ×2 (09:17→17:16)
[2016-04-27] MEDS: ENOXAPARIN SODIUM 40 MG/0.4 ML DISP.SYRIN SQ SCH (09:22)
[2016-04-27] MEDS: LORAZEPAM 0.5 MG TABLET PO PRN (12:40)
[2016-04-28] VITALS: BP 117/56
[2016-04-28] MEDS: ALBUTEROL HALF STRENGTH 1.25 MG/3 ML VIAL.NEB NEB SCH ×6 (03:30→22:58)
[2016-04-28] MEDS: IPRATROPIUM NEB FS 0.5 MG/2.5 ML AMPUL.NEB NEB SCH ×6 (03:30→22:57)
[2016-04-28 04:00] VITALS: BP_SYST 117; BP_SYST 130; BP_DIAS 56; BP_DIAS 67
[2016-04-28] MEDS: clonazePAM 1 MG TABLET NG SCH ×3 (05:00→21:15)
[2016-04-28 06:50] LABS: CALCIUM, SERUM 8.7 mg/dL (8.5-10.1); CREATININE 0.5 mg/dL (0.6-1.3); POTASSIUM 3.6 mmol/L (3.5-5.1)
[2016-04-28 06:52] LABS: BASOPHILS % (AUTO) 0.5 % (0.0-2.0); DIFF TOTAL % 100 %; HEMATOCRIT 32 % (33-45); HEMOGLOBIN 10.8 g/dL (11.5-14.8); LYMPHOCYTES # (AUTO) 1.4 /CMM (0.8-4.8); LYMPHOCYTES % (AUTO) 21.2 % (20.0-44.0); MEAN CORPUSCULAR HEMOGLOBIN 29 PG (26.0-33.0); MEAN CORPUSCULAR HGB CONC 34 g/dl (31.0-36.0); MEAN CORPUSCULAR VOLUME 86 fL (82-100); MONOCYTES # (AUTO) 0.4 /CMM (0.1-1.30); MONOCYTES % (AUTO) 6.8 % (2.0-12.0); NEUTROPHILS # (AUTO) 4.6 /CMM (1.8-8.9); NEUTROPHILS % (AUTO) 71.5 % (43.0-81.0); PLATELET COUNT (AUTO) 455 /CMM (150-450); RED BLOOD CELL COUNT(AUTO) 3.72 MIL/uL (4.0-5.2); WHITE BLOOD COUNT (AUTO) 6.4 K/uL (4.3-11.0)
[2016-04-28] MEDS: ACETYLCYSTEINE 10% SOLN 400 MG/4 ML VIAL NEB SCH ×3 (07:15→22:58)
[2016-04-28 08:00] VITALS: BP 114/50
[2016-04-28] MEDS: FLUVOXAMINE MALEATE 50 MG TABLET PO SCH ×2 (08:23→17:00)
[2016-04-28] MEDS: PREGABALIN 25 MG CAPSULE PO SCH ×2 (08:23→17:00)
[2016-04-28] MEDS: SIMVASTATIN 40 MG TABLET PO SCH (08:24)
[2016-04-28] MEDS: CLOZAPINE 100 MG TABLET PO SCH ×2 (08:24→21:17)
[2016-04-28] MEDS: SERTRALINE HCL 50 MG TABLET PO SCH ×2 (08:24→17:00)
[2016-04-28] MEDS: PANTOPRAZOLE 40 MG VIAL IV SCH (08:27)
[2016-04-28] MEDS: PROPRANOLOL HCL 10 MG TABLET PO SCH (08:27)
[2016-04-28] MEDS: DOCUSATE SODIUM LIQ 100 MG/10 ML UDC GT SCH ×2 (08:28→17:00)
[2016-04-28] MEDS: NEOMY SULF/BACITRAC ZN/POLY 15 GM TUBE TP SCH ×2 (08:30→17:00)
[2016-04-28] MEDS: ENOXAPARIN SODIUM 40 MG/0.4 ML DISP.SYRIN SQ SCH (08:32)
[2016-04-28 12:00] VITALS: BP 125/77
[2016-04-28 16:00] VITALS: BP 125/73
[2016-04-28 20:00] VITALS: BP 116/55
[2016-04-28] MEDS: MAGNESIUM HYDROXIDE 30 ML UDC PO PRN (21:21)
[2016-04-29] VITALS: BP 128/79
[2016-04-29] MEDS: ALBUTEROL HALF STRENGTH 1.25 MG/3 ML VIAL.NEB NEB SCH ×6 (03:28→23:00)
[2016-04-29] MEDS: IPRATROPIUM NEB FS 0.5 MG/2.5 ML AMPUL.NEB NEB SCH ×6 (03:28→23:00)
[2016-04-29 04:00] VITALS: BP 98/58
[2016-04-29] MEDS: clonazePAM 1 MG TABLET NG SCH (05:28)
[2016-04-29 06:31] LABS: CALCIUM, SERUM 8.8 mg/dL (8.5-10.1); CREATININE 0.6 mg/dL (0.6-1.3); POTASSIUM 3.8 mmol/L (3.5-5.1)
[2016-04-29] MEDS: ACETYLCYSTEINE 10% SOLN 400 MG/4 ML VIAL NEB SCH ×3 (07:10→23:00)
[2016-04-29 08:00] VITALS: BP 111/67
[2016-04-29] MEDS: CLOZAPINE 100 MG TABLET PO SCH ×2 (08:21→21:22)
[2016-04-29] MEDS: SIMVASTATIN 40 MG TABLET PO SCH (08:21)
[2016-04-29] MEDS: DOCUSATE SODIUM LIQ 100 MG/10 ML UDC GT SCH ×2 (08:22→17:47)
[2016-04-29] MEDS: PANTOPRAZOLE 40 MG VIAL IV SCH (08:23)
[2016-04-29] MEDS: PROPRANOLOL HCL 10 MG TABLET PO SCH (08:23)
[2016-04-29] MEDS: NEOMY SULF/BACITRAC ZN/POLY 15 GM TUBE TP SCH ×2 (08:29→17:48)
[2016-04-29] MEDS: ENOXAPARIN SODIUM 40 MG/0.4 ML DISP.SYRIN SQ SCH (08:30)
[2016-04-29] MEDS: SERTRALINE HCL 50 MG TABLET PO SCH ×2 (08:31→17:47)
[2016-04-29] MEDS: FLUVOXAMINE MALEATE 50 MG TABLET PO SCH ×2 (08:31→17:47)
[2016-04-29] MEDS: PREGABALIN 25 MG CAPSULE PO SCH ×2 (08:31→17:47)
[2016-04-29 12:00] VITALS: BP 108/47
[2016-04-29] MEDS ORDERED: clonazePAM 1 MG TABLET PO SCH (13:00)
[2016-04-29 16:00] VITALS: BP 121/58
[2016-04-29 20:00] VITALS: BP 98/48
[2016-04-30] VITALS (7 sets, daily range): BP systolic 94–123; BP diastolic 48–59
[2016-04-30] MEDS: ALBUTEROL HALF STRENGTH 1.25 MG/3 ML VIAL.NEB NEB SCH ×6 (02:56→23:09)
[2016-04-30] MEDS: IPRATROPIUM NEB FS 0.5 MG/2.5 ML AMPUL.NEB NEB SCH ×6 (02:56→23:09)
[2016-04-30 06:53] LABS: CALCIUM, SERUM 8.9 mg/dL (8.5-10.1); CREATININE 0.7 mg/dL (0.6-1.3); POTASSIUM 3.8 mmol/L (3.5-5.1)
[2016-04-30] MEDS: ACETYLCYSTEINE 10% SOLN 400 MG/4 ML VIAL NEB SCH ×3 (08:23→23:09)
[2016-04-30] MEDS: PANTOPRAZOLE 40 MG VIAL IV SCH (09:42)
[2016-04-30] MEDS: ENOXAPARIN SODIUM 40 MG/0.4 ML DISP.SYRIN SQ SCH (09:42)
[2016-04-30] MEDS: NEOMY SULF/BACITRAC ZN/POLY 15 GM TUBE TP SCH ×2 (09:43→18:05)
[2016-04-30] MEDS: DOCUSATE SODIUM LIQ 100 MG/10 ML UDC GT SCH ×2 (12:25→18:04)
[2016-04-30] MEDS: PROPRANOLOL HCL 10 MG TABLET PO SCH (12:26)
[2016-04-30] MEDS: CLOZAPINE 100 MG TABLET PO SCH ×2 (12:26→22:00)
[2016-04-30] MEDS: FLUVOXAMINE MALEATE 50 MG TABLET PO SCH ×2 (12:29→18:04)
[2016-04-30] MEDS: clonazePAM 1 MG TABLET PO SCH ×2 (12:29→18:04)
[2016-04-30] MEDS: PREGABALIN 25 MG CAPSULE PO SCH ×2 (12:29→18:10)
[2016-04-30] MEDS: SERTRALINE HCL 50 MG TABLET PO SCH ×2 (12:30→18:04)
[2016-04-30] MEDS: SIMVASTATIN 40 MG TABLET PO SCH (12:30)
[2016-05-01] VITALS: BP_SYST 100; BP_SYST 98; BP_DIAS 48; BP_DIAS 51
[2016-05-01] MEDS: LORAZEPAM 0.5 MG TABLET PO PRN ×2 (02:15→19:29)
[2016-05-01] MEDS: ALBUTEROL HALF STRENGTH 1.25 MG/3 ML VIAL.NEB NEB SCH ×5 (03:30→20:20)
[2016-05-01] MEDS: IPRATROPIUM NEB FS 0.5 MG/2.5 ML AMPUL.NEB NEB SCH ×5 (03:30→20:20)
[2016-05-01 04:00] VITALS: BP 125/68
[2016-05-01] MEDS: ACETYLCYSTEINE 10% SOLN 400 MG/4 ML VIAL NEB SCH ×2 (07:38→14:29)
[2016-05-01 08:00] VITALS: BP 106/69
[2016-05-01 08:02] LABS: CALCIUM, SERUM 9.5 mg/dL (8.5-10.1); CREATININE 0.6 mg/dL (0.6-1.3); POTASSIUM 3.9 mmol/L (3.5-5.1)
[2016-05-01] MEDS: NEOMY SULF/BACITRAC ZN/POLY 15 GM TUBE TP SCH ×2 (09:00→17:09)
[2016-05-01] MEDS: DOCUSATE SODIUM LIQ 100 MG/10 ML UDC GT SCH ×2 (09:15→16:57)
[2016-05-01] MEDS: ENOXAPARIN SODIUM 40 MG/0.4 ML DISP.SYRIN SQ SCH (09:15)
[2016-05-01] MEDS: PROPRANOLOL HCL 10 MG TABLET PO SCH (09:16)
[2016-05-01] MEDS: PANTOPRAZOLE 40 MG VIAL IV SCH (09:17)
[2016-05-01] MEDS: CLOZAPINE 100 MG TABLET PO SCH ×2 (09:17→22:00)
[2016-05-01] MEDS: clonazePAM 1 MG TABLET PO SCH ×2 (09:18→16:58)
[2016-05-01] MEDS: SERTRALINE HCL 50 MG TABLET PO SCH ×2 (09:18→16:57)
[2016-05-01] MEDS: SIMVASTATIN 40 MG TABLET PO SCH (09:18)
[2016-05-01] MEDS: FLUVOXAMINE MALEATE 50 MG TABLET PO SCH ×2 (09:18→16:58)
[2016-05-01] MEDS: PREGABALIN 25 MG CAPSULE PO SCH ×2 (09:24→16:58)
[2016-05-01 12:00] VITALS: BP 110/68
[2016-05-01 16:00] VITALS: BP 115/78
[2016-05-01 20:00] VITALS: BP 120/71
[2016-05-02] VITALS: BP 100/48
[2016-05-02] MEDS: ACETYLCYSTEINE 10% SOLN 400 MG/4 ML VIAL NEB SCH ×4 (00:06→23:04)
[2016-05-02] MEDS: ALBUTEROL HALF STRENGTH 1.25 MG/3 ML VIAL.NEB NEB SCH ×7 (00:06→23:04)
[2016-05-02] MEDS: IPRATROPIUM NEB FS 0.5 MG/2.5 ML AMPUL.NEB NEB SCH ×7 (00:06→23:04)
[2016-05-02 04:00] VITALS: BP 104/50
[2016-05-02 06:40] LABS: BASOPHILS % (AUTO) 0.4 % (0.0-2.0); DIFF TOTAL % 100 %; HEMATOCRIT 34 % (33-45); HEMOGLOBIN 11.1 g/dL (11.5-14.8); LYMPHOCYTES # (AUTO) 1.4 /CMM (0.8-4.8); LYMPHOCYTES % (AUTO) 24.8 % (20.0-44.0); MEAN CORPUSCULAR HEMOGLOBIN 29 PG (26.0-33.0); MEAN CORPUSCULAR HGB CONC 33 g/dl (31.0-36.0); MEAN CORPUSCULAR VOLUME 87 fL (82-100); MONOCYTES # (AUTO) 0.5 /CMM (0.1-1.30); MONOCYTES % (AUTO) 9.2 % (2.0-12.0); NEUTROPHILS # (AUTO) 3.8 /CMM (1.8-8.9); NEUTROPHILS % (AUTO) 65.6 % (43.0-81.0); PLATELET COUNT (AUTO) 364 /CMM (150-450); RED BLOOD CELL COUNT(AUTO) 3.89 MIL/uL (4.0-5.2); WHITE BLOOD COUNT (AUTO) 5.8 K/uL (4.3-11.0)
[2016-05-02 08:00] VITALS: BP 127/61
[2016-05-02] MEDS: DOCUSATE SODIUM LIQ 100 MG/10 ML UDC GT SCH ×2 (10:01→17:00)
[2016-05-02] MEDS: PANTOPRAZOLE 40 MG VIAL IV SCH (10:01)
[2016-05-02] MEDS: CLOZAPINE 100 MG TABLET PO SCH ×2 (10:04→21:58)
[2016-05-02] MEDS: PREGABALIN 25 MG CAPSULE PO SCH ×2 (10:07→17:00)
[2016-05-02] MEDS: SERTRALINE HCL 50 MG TABLET PO SCH ×2 (10:07→17:00)
[2016-05-02] MEDS: FLUVOXAMINE MALEATE 50 MG TABLET PO SCH ×2 (10:07→17:00)
[2016-05-02] MEDS: SIMVASTATIN 40 MG TABLET PO SCH (10:08)
[2016-05-02] MEDS: PROPRANOLOL HCL 10 MG TABLET PO SCH (10:11)
[2016-05-02] MEDS: ENOXAPARIN SODIUM 40 MG/0.4 ML DISP.SYRIN SQ SCH (10:18)
[2016-05-02] MEDS: NEOMY SULF/BACITRAC ZN/POLY 15 GM TUBE TP SCH ×2 (10:19→17:00)
[2016-05-02] MEDS: clonazePAM 1 MG TABLET PO SCH ×2 (10:20→17:00)
[2016-05-02 12:00] VITALS: BP 119/64
[2016-05-02 16:00] VITALS: BP 108/82
[2016-05-02 20:00] VITALS: BP 99/50
[2016-05-03] VITALS (7 sets, daily range): BP systolic 99–129; BP diastolic 44–82
[2016-05-03] MEDS: IPRATROPIUM NEB FS 0.5 MG/2.5 ML AMPUL.NEB NEB SCH ×6 (03:19→23:03)
[2016-05-03] MEDS: ALBUTEROL HALF STRENGTH 1.25 MG/3 ML VIAL.NEB NEB SCH ×6 (03:19→23:03)
[2016-05-03] MEDS: ACETYLCYSTEINE 10% SOLN 400 MG/4 ML VIAL NEB SCH ×3 (07:25→23:03)
[2016-05-03] MEDS: PROPRANOLOL HCL 10 MG TABLET PO SCH (09:00)
[2016-05-03] MEDS: PANTOPRAZOLE 40 MG VIAL IV SCH (09:23)
[2016-05-03] MEDS: SERTRALINE HCL 50 MG TABLET PO SCH ×2 (09:23→16:42)
[2016-05-03] MEDS: DOCUSATE SODIUM LIQ 100 MG/10 ML UDC GT SCH ×2 (09:23→16:41)
[2016-05-03] MEDS: FLUVOXAMINE MALEATE 50 MG TABLET PO SCH ×2 (09:23→16:41)
[2016-05-03] MEDS: SIMVASTATIN 40 MG TABLET PO SCH (09:23)
[2016-05-03] MEDS: ENOXAPARIN SODIUM 40 MG/0.4 ML DISP.SYRIN SQ SCH (09:24)
[2016-05-03] MEDS: PREGABALIN 25 MG CAPSULE PO SCH ×2 (09:25→16:54)
[2016-05-03] MEDS: CLOZAPINE 100 MG TABLET PO SCH ×2 (10:14→21:11)
[2016-05-03] MEDS: NEOMY SULF/BACITRAC ZN/POLY 15 GM TUBE TP SCH ×2 (10:17→16:54)
[2016-05-03] MEDS: clonazePAM 1 MG TABLET PO SCH ×2 (11:49→16:42)
[2016-05-04] MEDS: ALBUTEROL HALF STRENGTH 1.25 MG/3 ML VIAL.NEB NEB SCH ×5 (03:13→19:30)
[2016-05-04] MEDS: IPRATROPIUM NEB FS 0.5 MG/2.5 ML AMPUL.NEB NEB SCH ×5 (03:13→19:30)
[2016-05-04 04:00] VITALS: BP 101/52
[2016-05-04] MEDS: ACETYLCYSTEINE 10% SOLN 400 MG/4 ML VIAL NEB SCH ×2 (07:44→15:48)
[2016-05-04 08:00] VITALS: BP 121/64
[2016-05-04] MEDS: DOCUSATE SODIUM LIQ 100 MG/10 ML UDC GT SCH ×2 (08:56→17:40)
[2016-05-04] MEDS: SERTRALINE HCL 50 MG TABLET PO SCH ×2 (08:56→17:40)
[2016-05-04] MEDS: PANTOPRAZOLE 40 MG VIAL IV SCH (08:56)
[2016-05-04] MEDS: PREGABALIN 25 MG CAPSULE PO SCH ×2 (08:56→17:41)
[2016-05-04] MEDS: clonazePAM 1 MG TABLET PO SCH ×2 (08:57→17:41)
[2016-05-04] MEDS: PROPRANOLOL HCL 10 MG TABLET PO SCH (08:57)
[2016-05-04] MEDS: CLOZAPINE 100 MG TABLET PO SCH (08:57)
[2016-05-04] MEDS: FLUVOXAMINE MALEATE 50 MG TABLET PO SCH ×2 (08:58→17:41)
[2016-05-04] MEDS: ENOXAPARIN SODIUM 40 MG/0.4 ML DISP.SYRIN SQ SCH (08:58)
[2016-05-04] MEDS: SIMVASTATIN 40 MG TABLET PO SCH (08:58)
[2016-05-04] MEDS: NEOMY SULF/BACITRAC ZN/POLY 15 GM TUBE TP SCH ×2 (08:59→17:41)
[2016-05-04 16:00] VITALS: BP 114/75
== END 2016-05-04 21:32 | DRG 469 ==
LOC: ER 17:53 → MEDSG2 20:38 → ICU 04-12 15:35 → TELE1 04-25 11:57 → TELE-TD 04-25 17:49 → TELE1 04-26 15:30 → MEDSG1 05-03 12:18
PROVIDERS: ADMIT Nurse Practitioner Acute Care; ATTEND Nurse Practitioner Acute Care
PROC: 0SRS0JZ Replacement of Left Hip Joint, Femoral Surface with Synthetic Substitute, Open Approach (ICD-10-PCS; principal; 2016-04-10 08:42)
PROC: 5A1955Z Respiratory Ventilation, Greater than 96 Consecutive Hours (ICD-10-PCS; 2016-04-12)
PROC: 0BH18EZ Insertion of Endotracheal Airway into Trachea, Via Natural or Artificial Opening Endoscopic (ICD-10-PCS; 2016-04-12)
PROC: 05HM33Z Insertion of Infusion Device into Right Internal Jugular Vein, Percutaneous Approach (ICD-10-PCS; 2016-04-12)
PROC: B543ZZA Ultrasonography of Right Jugular Veins, Guidance (ICD-10-PCS; 2016-04-12)
PROC: 30233N1 Transfusion of Nonautologous Red Blood Cells into Peripheral Vein, Percutaneous Approach (ICD-10-PCS; 2016-04-14)
DX: S72.012A Unspecified intracapsular fracture of left femur, initial encounter for closed fracture (principal); J96.01 Acute respiratory failure with hypoxia; G93.40 Encephalopathy, unspecified; E43 Unspecified severe protein-calorie malnutrition; J18.9 Pneumonia, unspecified organism; E87.0 Hyperosmolality and hypernatremia; J90 Pleural effusion, not elsewhere classified; J98.11 Atelectasis; W01.0XXA Fall on same level from slipping, tripping and stumbling without subsequent striking against object, initial encounter; E78.5 Hyperlipidemia, unspecified; F17.210 Nicotine dependence, cigarettes, uncomplicated; F25.9 Schizoaffective disorder, unspecified; F32.9 Major depressive disorder, single episode, unspecified; F41.9 Anxiety disorder, unspecified; I10 Essential (primary) hypertension; D64.9 Anemia, unspecified; E83.39 Other disorders of phosphorus metabolism; E87.6 Hypokalemia; H91.10 Presbycusis, unspecified ear; Z86.73 Personal history of transient ischemic attack (TIA), and cerebral infarction without residual deficits; Y93.9 Activity, unspecified; Y92.009 Unspecified place in unspecified non-institutional (private) residence as the place of occurrence of the external cause; R73.9 Hyperglycemia, unspecified; E86.0 Dehydration; S30.820A Blister (nonthermal) of lower back and pelvis, initial encounter; M85.80 Other specified disorders of bone density and structure, unspecified site
CPT/HCPCS: 31720; 36415; 36600; 71010-TC; 73020; 73510-TC; 74000-TC; 80048-TC; 80053-TC; 80061-TC; 80202-TC; 81000-TC; 82803-TC; 83735-TC; 84100-TC; 84478-TC; 85025-TC; 85730-TC; 86850-TC; 86921-TC; 87070-TC; 87081-TC; 88305-TC; 88311-TC; 92526; 92611-TC; 93970-TC; 94002-TC; 94003-TC; 94640-TC; 94760-TC; 94799-TC; 97001-TC; 97110-TC; 97112-TC; 97116-TC; 97530-TC; 99082-TC; A4217; A4606; A6209; A6253; A6402; C9113; J0330; J0690; J0696; J1650; J1885; J1956; J2060; J2250; J2270; J2370; J2405; J2543; J2704; J2710; J3010; J3370; J3475; J3480; J3490; J7030; J7040; J7042; J7050; J7060; P9016-BL; Q9967; Z7610

== ENCOUNTER 2018-06-20 21:56 | Emergency (ER) | payer BC ==
[~2018-06-20] VITALS: Ht 165.1 cm; Wt 59.0 kg
[~2018-06-20 21:56] MED LIST: CLON1TAB12 PO; CLOZ100T32 PO; CLOZ200T PO; FLUV100T3 PO; PREG75CA PO; PROP20TA7 PO; SERT50TA12 PO; SIMV40TA5 PO
[2018-06-20 22:50] LABS: BASOPHILS % (AUTO) 0.8 % (0.0-2.0); EOSINOPHILS % (AUTO) 3.2 % (0.0-6.0); HEMATOCRIT 37 % (33-45); HEMOGLOBIN 12.2 g/dL (11.5-14.8); LYMPHOCYTES # (AUTO) 1.8 /CMM (0.8-4.8); LYMPHOCYTES % (AUTO) 32.7 % (20.0-44.0); MEAN CORPUSCULAR HGB CONC 33 g/dl (31.0-36.0); MEAN CORPUSCULAR VOLUME 88 fL (82-100); MONOCYTES # (AUTO) 0.4 /CMM (0.1-1.30); MONOCYTES % (AUTO) 7.1 % (2.0-12.0); NEUTROPHILS % (AUTO) 56.2 % (43.0-81.0); PLATELET COUNT (AUTO) 152 /CMM (150-450); RED BLOOD CELL COUNT(AUTO) 4.26 MIL/uL (4.0-5.2); WHITE BLOOD COUNT (AUTO) 5.4 K/uL (4.3-11.0)
--- NOTE | 2018-06-20 22:52 | NUR ---
[id number] FROM STREETS FOR ERRATIC BEHAVIOR. DENIES PAIN. VSS. PT ETOH, CALM & COOPERATIVE, RR EVEN & UNLABORED. PT SEEN & EVAL'D BY ANDERSON DELEON & WILL CONT TO MONITOR.
[2018-06-20 22:59] LABS: CALCIUM, SERUM 8.9 mg/dL (8.5-10.1); CARBON DIOXIDE 22 mmol/L (21-32); CHLORIDE 107 mmol/L (98-107); GLUCOSE 73 mg/dL (74-106); POTASSIUM 3.2 mmol/L (3.5-5.1); SODIUM SERUM 142 mmol/L (136-145); UREA NITROGEN, BLOOD 25 mg/dL (7-18)
[2018-06-20 23:04] LABS: ALANINE AMINOTRANSFERASE 43 U/L (12-78); ALBUMIN 3.8 g/dL (3.4-5.0); ALKALINE PHOSPHATASE 125 U/L (46-116); ASPARTATE AMINOTRANSFERASE 28 U/L (15-37); BILIRUBIN,DIRECT 0.1 mg/dL (0.0-0.2); BILIRUBIN,TOTAL 0.4 mg/dL (0.2-1.0)
[2018-06-20] MEDS ORDERED: OLANZAPINE 10 MG VIAL IM ONE ×2 (23:30→23:33)
--- NOTE | 2018-06-20 23:51 | NUR ---
URINE COLLECTED AND SENT TO LAB
[2018-06-20 23:59] LABS: APPEARANCE,URINE Clear (CLEAR); BILIRUBIN,URINE SMALL (NEGATIVE); BLOOD, URINE Negative Ery/uL (NEGATIVE); COLOR,URINE Yellow (YELLOW); KETONES,URINE 15 (NEGATIVE); LEUKOCYTE ESTERASE ,URINE Negative (NEGATIVE); NITRITE, URINE Negative (NEGATIVE); PH,URINE 5.5 (5.0-8.0); PROTEIN,URINE Negative (NEGATIVE); UGLUCOSE Negative (NEGATIVE); UROBILINOGEN,URINE 0.2 EU/dL (0.2)
--- NOTE | 2018-06-21 00:02 | NUR ---
Patient is resting comfortably in bed with eyes closed. Easily aroused. VSS
[2018-06-21 00:20] LABS: RBC,URINE 0-2 /HPF (0-2)
[2018-06-21 00:21] LABS: BACTERIA,URINE None seen /HPF (None Seen); SQUAMOUS EPITHELIAL CELL,UR Few /HPF (None Seen); WBC,URINE 0-2 /HPF (0-3)
--- NOTE | 2018-06-21 07:35 | NUR ---
PATIENT RESTING INSIDE ROOM, EYES CLOSED. EASILY AROUSABLE THROUGH VERBAL AND TACTILE STIMULI. HARD OF HEARING, BILETERAL HEARING AIDS IN PLACE. NO ACUTE DITRESS
--- NOTE | 2018-06-21 09:04 | NUR ---
PATIENT AMBULATORY. A&O X 3, REPORTS THAT SHE LIVES AT HOME WITH MOM, WANTS TO GO HOME. VERBALIZES SHE WILL TAKE TAXI TO GO HOME. HARD OF HEARING. BILATERAL HEARING AIDES NOTED AND WORKING. AWARE
--- NOTE | 2018-06-21 09:29 | NUR ---
PATIENT CLEARED BY DR TOLBERT FOR DISCHARGE. PATIENT TO DISCHARGE HOME. VERBALIZED SHE WILL TAKE TAXI TO GO HOME. DISCHARGE INSTRUCTIONS GIVEN AND PATIENT VERBALIZED UNDERSTANDING. VERBALIZED SHE WILL MAKE FOLLOW-UP APPOINTMENT WITH PCP. NO NEW SKIN BREAKDOWN NOTED. PATIENT LEFT UNIT AMBULATORY. NO ACUTE DISTRESS. BILATERAL HEARING AIDS IN PLACE. NO C/O PAIN OR DISCOMFORT.
[2018-06-21 09:32] VITALS: BP 113/61
== END 2018-06-21 09:30 | disposition home or self-care (01) ==
LOC: ER 21:58
DX: R45.1 Restlessness and agitation (principal); G40.909 Epilepsy, unspecified, not intractable, without status epilepticus; I10 Essential (primary) hypertension; F25.9 Schizoaffective disorder, unspecified; G62.9 Polyneuropathy, unspecified; Z88.5 Allergy status to narcotic agent; W01.0XXA Fall on same level from slipping, tripping and stumbling without subsequent striking against object, initial encounter; Y93.89 Activity, other specified; Y92.89 Other specified places as the place of occurrence of the external cause; Y99.8 Other external cause status
CPT/HCPCS: 36415; 70450; 71045; 72125; 80048; 80076; 80305; 81001; 84484; 85025; 85730; 93005; 96372; 99284; J3490; 81000-TC

== ENCOUNTER 2019-04-05 14:12 | Emergency (ER) | payer BC ==
[~2019-04-05] VITALS: Ht 167.6 cm; Wt 81.6 kg
[~2019-04-05 14:12] MED LIST changes: +SIMV-49 PO; -SIMV40TA5 PO
--- NOTE | 2019-04-05 14:20 | NUR ---
[id number] 63 year old female from home, family concerned about slurred speech. LKW, last night per ems. 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 alert to name, confused at times. noted with chin bruise. pt able to move all extremity. skin intact. waiting to be seen by
[2019-04-05] MEDS ORDERED: IV NS 0.9% 1,000 ML BAG IV ONE (14:30)
--- NOTE | 2019-04-05 14:32 | NUR ---
CALLED NURSING SUP FOR TELE BED.
[2019-04-05 14:36] LABS: BASOPHILS # (AUTO) 0.1 /CMM (0.0-0.2); BASOPHILS % (AUTO) 0.9 % (0.0-2.0); EOSINOPHILS % (AUTO) 2.1 % (0.0-6.0); HEMATOCRIT 39 % (33-45); HEMOGLOBIN 12.7 g/dL (11.5-14.8); LYMPHOCYTES # (AUTO) 1.6 /CMM (0.8-4.8); LYMPHOCYTES % (AUTO) 26.3 % (20.0-44.0); MEAN CORPUSCULAR HGB CONC 33 g/dl (31.0-36.0); MEAN CORPUSCULAR VOLUME 85 fL (82-100); MONOCYTES # (AUTO) 0.4 /CMM (0.1-1.30); MONOCYTES % (AUTO) 5.9 % (2.0-12.0); NEUTROPHILS # (AUTO) 3.9 /CMM (1.8-8.9); NEUTROPHILS % (AUTO) 64.8 % (43.0-81.0); PLATELET COUNT (AUTO) 204 /CMM (150-450); RED BLOOD CELL COUNT(AUTO) 4.54 MIL/uL (4.0-5.2); WHITE BLOOD COUNT (AUTO) 6.1 K/uL (4.3-11.0)
[2019-04-05 14:49] LABS: CALCIUM, SERUM 9.2 mg/dL (8.5-10.1); CARBON DIOXIDE 30 mmol/L (21-32); CHLORIDE 105 mmol/L (98-107); CREATININE 0.8 mg/dL (0.6-1.3); GLUCOSE 104 mg/dL (74-106); POTASSIUM 3.5 mmol/L (3.5-5.1); SODIUM SERUM 142 mmol/L (136-145); UREA NITROGEN, BLOOD 13 mg/dL (7-18)
--- NOTE | 2019-04-05 14:51 | NUR ---
PT REFUSE F/C AT THIS TIME. MADE AWARE
[2019-04-05 14:55] LABS: ALANINE AMINOTRANSFERASE 24 U/L (12-78); ALBUMIN 3.7 g/dL (3.4-5.0); ALCOHOL, BLOOD < 3 mg/dL (0-0); ALKALINE PHOSPHATASE 147 U/L (46-116); ASPARTATE AMINOTRANSFERASE 18 U/L (15-37); BILIRUBIN,DIRECT 0.1 mg/dL (0.0-0.2); BILIRUBIN,TOTAL 0.4 mg/dL (0.2-1.0); TOTAL PROTEIN, SERUM 7.3 g/dL (6.4-8.2)
--- NOTE | 2019-04-05 15:12 | NUR ---
[facility] CALLED. WILL SET UP A PEER TO PEER FOR POSSIBLE ADMISSION. NUMBER FOR [facility] [phone].
[2019-04-05 15:22] LABS: SERUM AMMONIA 15 umol/L (11-32)
--- NOTE | 2019-04-05 15:28 | NUR ---
[facility] ROD CALLED. PT WILL BE POSSIBLY TRANSFERED TO [facility]. [facility] WILL SET UP PEER TO PEER SHORTLY.
[2019-04-05 15:29] LABS: THYROID STIMULATING HORMONE 1.226 uIU/mL (0.358-3.74)
[2019-04-05] MEDS ORDERED: DULO60CA64 PO (15:33)
[2019-04-05] MEDS ORDERED: AMIT100T2 PO (15:33)
[2019-04-05] MEDS ORDERED: LAMO25TA10 PO (15:33)
[2019-04-05] MEDS ORDERED: SERT100T12 PO (15:33)
[2019-04-05] MEDS ORDERED: QUET50TA79 PO (15:33)
[2019-04-05] MEDS ORDERED: PROP20TA19 PO (15:33)
--- NOTE | 2019-04-05 15:48 | NUR ---
PT REFUSED F/C, ASK MD TO DO IN N OUT INSTEAD. MD AGREED. URINE COLLECTED AND SENT TO LAB
--- NOTE | 2019-04-05 16:00 | NUR ---
NURSING SUP GAVE TELE BED 101.
[2019-04-05 16:02] LABS: APPEARANCE,URINE Clear (CLEAR); BILIRUBIN,URINE Negative (NEGATIVE); BLOOD, URINE Negative Ery/uL (NEGATIVE); COLOR,URINE Yellow (YELLOW); KETONES,URINE Negative (NEGATIVE); LEUKOCYTE ESTERASE ,URINE Trace (NEGATIVE); NITRITE, URINE Negative (NEGATIVE); PROTEIN,URINE Negative (NEGATIVE); UGLUCOSE Negative (NEGATIVE); UROBILINOGEN,URINE 0.2 EU/dL (0.2)
[2019-04-05 16:26] LABS: BACTERIA,URINE Few /HPF (None Seen); RBC,URINE 0-2 /HPF (0-2); SQUAMOUS EPITHELIAL CELL,UR Few /HPF (None Seen); WBC,URINE 0-2 /HPF (0-3)
--- NOTE | 2019-04-05 16:44 | NUR ---
DARINEL GIL (SISTER) [phone] WILL COME MANAGER ART PT .
[2019-04-05 16:57] VITALS: BP 125/62
--- NOTE | 2019-04-05 17:25 | NUR ---
IV removed. Catheter intact and site benign. Pressure and 4x4 applied to site. No bleeding noted. Patient discharged to home in stable condition. Written and verbal after care instructions given. Patient verbalizes understanding of instruction.
== END 2019-04-05 17:25 | disposition home or self-care (01) ==
LOC: ER 14:14
DX: R47.81 Slurred speech (principal); I10 Essential (primary) hypertension; R41.0 Disorientation, unspecified; F25.9 Schizoaffective disorder, unspecified; Z88.5 Allergy status to narcotic agent; Z79.899 Other long term (current) drug therapy
CPT/HCPCS: 36415; 70450; 71045; 80048; 80076; 80307; 81001; 82140; 83605; 84443; 84484; 85025; 85730; 93005; 96360; 99284; J7030; 81000-TC; G0480

== ENCOUNTER 2023-02-20 10:48 | Emergency (ER) | payer BC, OTHER ==
[~2023-02-20] VITALS: Ht 162.6 cm; Wt 72.6 kg
[~2023-02-20 10:48] MED LIST changes: +AMIT100T2 PO; +ATOR20TA PO; -CLOZ100T32 PO; -CLOZ200T PO; +DULO60CA64 PO; +HYDR-3972 PO; +LAMO25TA10 PO; +MELO-107 PO; +PREG-59 PO; -PREG75CA PO; +PROP20TA19 PO; -PROP20TA7 PO; +QUET50TA79 PO; +SERT100T12 PO; -SERT50TA12 PO
[2023-02-20 12:24] VITALS: BP 130/78; TEMP 98.1; O2SAT 97
== END 2023-02-20 12:25 ==
LOC: ER 10:50
DX: Z02.89 Encounter for other administrative examinations (principal); I10 Essential (primary) hypertension; F20.9 Schizophrenia, unspecified; Z98.890 Other specified postprocedural states; Z79.899 Other long term (current) drug therapy; Z88.5 Allergy status to narcotic agent